=== PATIENT | female | born 1945 | race Caucasian/White ===

== ENCOUNTER 2019-04-09 15:07 | Outpatient (CLI) | payer MEDICARE, OTHER, SELFPAY ==
--- NOTE | ~2019-04-09 | MM_ITS ---
EXAMINATION: MM screening eloina BI w hector HISTORY: Screening mammogram TECHNIQUE: Craniocaudal and mediolateral oblique 3-D tomosynthesis images were obtained and synthetic 2-D images were generated. CAD analysis was submitted and interpreted. COMPARISON: Comparison to multiple prior studies sequentially, with oldest reviewed study dated 12/15. BREAST PARENCHYMAL COMPOSITION: There are scattered areas of fibroglandular density. FINDINGS: There is no evidence of suspicious mass, calcification, or architectural distortion to sugg est malignancy in either breast. There has been no suspicious interval change. IMPRESSION: 1. No mammographic evidence of malignancy. 2. Recommend routine screening mammography in one year. BI-RADS Category 1: Negative Reviewed, dictated and finalized at location A. 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
== END 2019-04-09 15:08 | disposition home or self-care (01) ==
PROVIDERS: PCP Family Medicine; Visit Provider Obstetrics & Gynecology Gynecology
DX: Z12.31 Encounter for screening mammogram for malignant neoplasm of breast (principal)
CPT/HCPCS: 77063; 77067

== ENCOUNTER 2019-08-12 10:57 | Outpatient (CLI) | payer MEDICARE, SELFPAY ==
[2019-08-12 13:11] LABS: Anion Gap 11.4 mmol/L (7-16); Blood Urea Nitrogen 8 mg/dL (7-18); Calcium 9.5 mg/dL (8.5-10.1); Carbon Dioxide 28 mmol/L (21-32); Chloride 97 mmol/L (98-108); Cholesterol 206 mg/dL (0-200); Estimated Glomerular Filt Rate > 60; Glucose 93 mg/dL (70-99); HDL Direct 70 mg/dL (40-60); LDL Cholesterol Calculated 122 mg/dL (<130); Osmolality Calculated 272 mOsm/kg (285-295); Potassium 4.4 mmol/L (3.5-5.1); Sodium 132 mmol/L (136-145); Thyroid Stimulating Hormone 2.13 uIU/mL (0.36-3.74); Triglycerides 71 mg/dL (0-150)
== END 2019-08-12 10:58 | disposition home or self-care (01) ==
PROVIDERS: PCP Family Medicine; Visit Provider Family Medicine
DX: R53.83 Other fatigue (principal); T17.308A Unspecified foreign body in larynx causing other injury, initial encounter; E87.1 Hypo-osmolality and hyponatremia; E78.5 Hyperlipidemia, unspecified
CPT/HCPCS: 36415; 80048; 80061; 84443

== ENCOUNTER 2019-09-02 09:42 | Outpatient (CLI) | payer MEDICARE, OTHER, SELFPAY ==
--- NOTE | ~2019-09-02 | MR_ITS ---
EXAMINATION: MR brain/brain stem wo/w con DATE: 09/02/2019 11:13 INDICATION: Syncope and collapse. TECHNIQUE: Magnetic resonance imaging (MRI) of the brain and brainstem was performed without and with 12 mL MultiHance intravenous contrast. Sequences included sagittal and axial T1-weighted FSE, axial diffusion-weighted FS EPI, axial T2*-weighted GRE, axial T2-weighted FLAIR Propeller, and axial T2-we ighted Propeller. Postcontrast sequences included axial and coronal T1-weighted FSE. Apparent diffusi on coefficient (ADC) maps were created. COMPARISON: None. FINDINGS: There is no intracranial hemorrhage, acute infarction, or abnormal intracranial mass lesion . The ventricles are normal in size. The paranasal sinuses are clear. The orbits are normal. The mast oid air cells are normal. IMPRESSION: 1. Normal brain. Reviewed, dictated and finalized at location A. IMPRESSION: 1. Normal brain.
== END 2019-09-02 09:43 | disposition home or self-care (01) ==
PROVIDERS: PCP Family Medicine; Visit Provider Family Medicine
DX: R55 Syncope and collapse (principal)
CPT/HCPCS: 70553; A9577

== ENCOUNTER 2019-10-02 14:14 | Outpatient (CLI) | payer MEDICARE, SELFPAY ==
[2019-10-05 06:41] LABS: Osmolality, Urine 196 mOsm/kg (50-1200)
== END 2019-10-02 14:15 | disposition home or self-care (01) ==
PROVIDERS: PCP Family Medicine; Visit Provider Family Medicine
DX: E87.1 Hypo-osmolality and hyponatremia (principal)
CPT/HCPCS: 83935

== ENCOUNTER 2019-11-08 10:55 | Emergency (ER) | payer MEDICARE, OTHER, SELFPAY ==
--- NOTE | ~2019-11-08 | US_ITS ---
EXAMINATION: US venous doppler [facility] EXAM DATE: 11/08/2019 12:56 INDICATION: Left leg pain and swelling. TECHNIQUE: Multiple grayscale, color flow and Doppler images of the left lower extremity deep venous system were obtained and reviewed. There is no prior study for comparison. FINDINGS: The left common femoral, femoral and profunda veins demonstrate normal color flow, respirat ory variation, augmentation and compressibility. Compressibility, color flow confirmed within the le ft popliteal, posterior tibial, peroneal, and greater saphenous veins. IMPRESSION: 1. No left lower extremity deep venous thrombosis. Reviewed, dictated and finalized at location B.
[2019-11-08 10:58] VITALS: BP 164/67; PULSE 78; RESP 19; TEMP 36.6; O2SAT 100
--- NOTE | 2019-11-08 12:07 | ED.LOWEXIN ---
HPI - Extremity Injury (Lower) General Chief Complaint: Extremity Injury, Lower <Trae Clemente PA-C - Last Filed: 11/08/19 21:58> Stated Complaint: possible blood clot <Trae Clemente PA-C - Last Filed: 11/08/19 21:58> Time Seen by Provider: 11/08/19 11:57 <Trae Clemente PA-C - Last Filed: 11/08/19 21:58> Source: patient <VIET Harding Last Filed: 11/08/19 21:58> Mode of arrival: ambulatory <VIET Harding Last Filed: 11/08/19 21:58> Limitations: no limitations <VIET Harding Last Filed: 11/08/19 21:58> History of Present Illness HPI Narrative: Patient presents for rule out DVT after calling her primary care provider and explaining to them that she had a swelling to her left ankle that they moved to her calf, then moved up closer to her knee. She denies any shortness of breath or chest pain. She denies she reports that the area was more swelling erythematous with a has now improved. Patient reports she has a lot of deep vein thrombosis to the knee. Patient is also on estrogen therapy. <VIET Harding Last Filed: 11/08/19 21:58> Related Data Home Medications: Home Medications Medication Instructions Recorded Confirmed estradiol 1 mg tablet 1 mg PO DAILY 12/18/18 08/18/19 phenazopyridine 95 mg tablet 95 mg PO TID PRN 12/18/18 08/18/19 calcium citrate 250 mg 1 tablet PO DAILY tablet 03/12/19 08/18/19 calcium-vitamin D3 200 unit tablet sertraline mg DAILY 11/08/19 <VIET Harding Last Filed: 11/08/19 21:58> Allergies/Adverse Reactions: Allergies Allergy/AdvReac Type Severity Reaction Status Date / Time meperidine Allergy Unknown Hives Verified 11/08/19 11:01 Sulfa (Sulfonamide Allergy Unknown Hives Verified 11/08/19 11:01 Antibiotics) <VIET Harding Last Filed: 11/08/19 21:58> Review of Systems Review of Systems: Narrative: CONSTITUTIONAL: Denies fever, chills, or sweats. EYES: Denies visual changes, redness, or discharge. ENT: Denies rhinorrhea, congestion, sore throat, or otalgia. CARDIOVASCULAR: Denies chest pain, palpitations, or edema. RESPIRATORY: Denies cough or dyspnea. GASTROINTESTINAL: Denies abdominal pain, nausea, vomiting, or diarrhea. GENITOURINARY: Denies dysuria or hematuria. SKIN: Reports swelling left lower leg denies rash or itching. MUSCULOSKELETAL: Denies back pain, myalgia, or joint pain NEUROLOGIC: Denies headache, numbness, dizziness, or weakness. PSYCHIATRIC: Denies anxiety or depression. <Trae Clemente PA-C - Last Filed: 11/08/19 21:58> [facility] Social History Social History: Social History Smoking status: Never smoker Second hand tobacco smoke exposure: Yes Alcohol intake: current Substance use: never Substance use type: does not use Gender identity (if verbalized by the patient): Female <Trae Clemente PA-C - Last Filed: 11/08/19 21:58> Exam Narrative: Exam Narrative: GENERAL: Well-appearing, well-nourished. HEAD: Normocephalic, atraumatic. EYES: PERRLA and EOMI. ENT: Nares clear, no rhinorrhea or epistaxis. Mucous membranes moist. Oropharynx without tonsillar hypertrophy exudate or other lesions. Bilateral TMs pearly alvarado nonbulging NECK: Supple. No adenopathy or masses. No vertebral tenderness or loss of ROM. CHEST: Clear to auscultation. No respiratory distress. No wheezes rales or rhonchi HEART: Regular rate and rhythm. Normal peripheral pulses. ABDOMEN: Soft, nontender, nondistended, normal active bowel sounds. No bruises noted. EXTREMITIES: No acute changes in ROM. No edema. No bony tenderness to the ankle. There are multiple varicosities noted along patient's leg but there is not appreciated swelling or tenderness. Calf is not tender to palpation. SKIN: Warm, dry, no rash. NEURO: No focal deficits. Alert and oriented x3. PSYCH: Normal mood and affect. <Trae Clemente PA
[2019-11-08 14:13] VITALS: BP 151/72; PULSE 57; RESP 16; O2SAT 98
== END 2019-11-08 14:16 | disposition home or self-care (01) ==
PROVIDERS: Emergency Provider Emergency Medicine; PCP Family Medicine
DX: I80.02 Phlebitis and thrombophlebitis of superficial vessels of left lower extremity (principal)
CPT/HCPCS: 93971; 99284

== ENCOUNTER 2020-01-06 14:06 | Outpatient (CLI) | payer MEDICARE, OTHER, SELFPAY ==
--- NOTE | ~2020-01-06 | XR_ITS ---
EXAMINATION: XR lumbar spine min 4V DATE: 01/06/2020 14:46 INDICATION: Radiculopathy with pain radiating down the left leg TECHNIQUE: Anteroposterior, lateral, and bilateral oblique views of the lumbar spine, and cone-down l ateral view of the lumbosacral junction were obtained. COMPARISON: None. FINDINGS: 4 mm anterolisthesis L4 on L5. Vertebral body heights are normal. Moderate disc height loss at L4-L5 and L5-S1. Mild disc height loss at L3-L4 and minimal disc height loss at L1-L2 and L2-L3. No pars in terarticularis defects. Lumbar facet osteoarthritis moderate to severe bilaterally at L4-L5 and L5-S1 and mild in the more cephalad lumbar spine. Sacrum and bilateral sacroiliac joints are unremarkable. Cholecystectomy clips in the right upper quadrant. Additional surgical clips in the epigastric regio n. IMPRESSION: 1. Moderate lower lumbar spondylosis including 4 mm anterolisthesis L4 on L5. Reviewed, dictated and finalized at location . 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
== END 2020-01-06 14:07 | disposition home or self-care (01) ==
LOC: CHSLAB 14:08
PROVIDERS: PCP Family Medicine; Visit Provider Physician Assistant
DX: M54.10 Radiculopathy, site unspecified (principal)
CPT/HCPCS: 72110

== ENCOUNTER → 2020-02-05 14:21 | Outpatient (CLI) | payer MEDICARE, OTHER, SELFPAY ==
--- NOTE | ~2020-02-05 | MR_ITS ---
. EXAMINATION: MR lumbar spine wo con DATE: 02/05/2020 15:06 INDICATION: Low back pain. Left leg pain. Lumbar radiculopathy. TECHNIQUE: Magnetic resonance imaging (MRI) of the lumbar spine was performed without intravenous con trast. Sequences included sagittal T2-weighted FSE, sagittal T2-weighted FS FSE, sagittal T1-weighted FSE, and axial T2-weighted FSE. COMPARISON: Lumbar spine radiographs 01/06/2020 FINDINGS: There is 3 mm anterolisthesis of L4 on L5. Vertebral body heights are normal. There is mild ly decreased disc height at L3-L4, moderately decreased disc height at L4-L5, and severely decreased disc height at L5-S1. 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 The distal spinal cord signal intensity is normal. The conus medullaris is at L1. The following disc levels are specifically discussed: L1-L2: The disc does not extend beyond the endplate margin. There is mild bilateral facet joint osteo arthritis. There is no neural foraminal stenosis. There is no central canal stenosis. L2-L3: The disc is bulging. There is moderate right and mild left facet joint osteoarthritis. There i s mild bilateral neural foraminal stenosis. There is no central canal stenosis. L3-L4: The disc is bulging and has an annular fissure. There is severe bilateral facet joint osteoart hritis with synovial cyst on the left. There is mild right and moderate left neural foraminal stenosi s. There is mild central canal stenosis with asymmetry stenosis of left lateral recess. L4-L5: The disc is bulging and has an annular fissure. There is severe bilateral facet joint osteoart hritis. There is mild bilateral neural foraminal stenosis. There is severe central canal stenosis. L5-S1: The disc is bulging and has an annular fissure. There is severe bilateral facet joint osteoart hritis. There is mild bilateral neural foraminal stenosis. There is mild central canal stenosis. IMPRESSION: 1. Severe lumbar spondylosis. Reviewed, dictated and finalized at location A. 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
== END ==
PROVIDERS: PCP Physician Assistant; Visit Provider Nurse Practitioner Family
DX: M47.26 Other spondylosis with radiculopathy, lumbar region (principal)
CPT/HCPCS: 72148

== ENCOUNTER 2020-10-13 14:05 | Outpatient (CLI) | payer MEDICARE, SELFPAY ==
[2020-10-13 14:22] LABS: Hemoglobin 12.3 g/dL (11.7-13.8); Mean Corpuscular HGB Conc 33.2 g/dL (32.0-36.0); Mean Corpuscular Hemoglobin 29.4 pg (27.0-31.0); Mean Corpuscular Volume 88.3 fL (78.0-102.0); Platelet Count Result 326 K/mm3 (150-420); Red Blood Count 4.19 M/mm3 (4.20-5.40); Red Cell Distribution Width 12.6 % (11.6-14.4); White Blood Count 7.8 K/mm3 (4.8-10.8)
[2020-10-13 14:27] LABS: Sodium Urine Random 31 mmol/L (20-110)
[2020-10-13 14:59] LABS: Alanine Aminotransferase 23 U/L (14-59); Albumin Level 3.6 g/dL (3.4-5.0); Alkaline Phosphatase 96 U/L (46-116); Anion Gap 5 mmol/L (8-16); Aspartate Amino Transferase 12 U/L (15-37); Bilirubin,Total 0.2 mg/dL (0.00-1.00); Blood Urea Nitrogen 12 mg/dL (7-18); Calcium 9.4 mg/dL (8.5-10.1); Carbon Dioxide 27 mmol/L (21-32); Chloride 101 mmol/L (98-108); Cholesterol 199 mg/dL (0-200); Estimated Glomerular Filt Rate > 60; Glucose 108 mg/dL (70-99); HDL Direct 65 mg/dL (40-60); LDL Cholesterol Calculated 109 mg/dL (<130); Osmolality Calculated 276 mOsm/kg (285-295); Potassium 4.2 mmol/L (3.5-5.1); Sodium 133 mmol/L (136-145); Total Protein 6.7 g/dL (6.4-8.2); Triglycerides 124 mg/dL (0-150)
[2020-10-17 05:40] LABS: Osmolality, Urine 319 mOsm/kg (50-1200)
[2020-10-17 06:05] LABS: Vitamin D 25 Hydroxy 14 ng/mL (30-100)
== END 2020-10-13 14:06 | disposition home or self-care (01) ==
LOC: CHSLAB 14:08
PROVIDERS: PCP Family Medicine; Visit Provider Family Medicine
DX: E87.1 Hypo-osmolality and hyponatremia (principal); E11.9 Type 2 diabetes mellitus without complications; E55.9 Vitamin D deficiency, unspecified; E03.9 Hypothyroidism, unspecified; E78.2 Mixed hyperlipidemia; I10 Essential (primary) hypertension
CPT/HCPCS: 36415; 80053; 80061; 82306; 83036; 83930; 83935; 84300; 84443; 85027

== ENCOUNTER 2020-12-23 14:22 | Outpatient (CLI) | payer MEDICARE, OTHER, SELFPAY ==
--- NOTE | ~2020-12-23 | XR_ITS ---
EXAMINATION: XR ankle LT min 3V DATE: 12/23/2020 14:51 INDICATION: Left ankle pain TECHNIQUE: Anteroposterior, lateral, mortise, and additional oblique view of the ankle were obtained. COMPARISON: None. FINDINGS: There is no fracture, dislocation, or subluxation. A plantar calcaneal enthesophyte is note d. There is mild soft tissue swelling of ankle. IMPRESSION: 1. Mild soft tissue swelling without acute osseous abnormality. Reviewed, dictated and finalized at location B. 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
--- NOTE | ~2020-12-23 | US_ITS ---
EXAMINATION: US venous doppler [facility] DATE: 12/23/2020 14:56 INDICATION: Left lower limb pain TECHNIQUE: Hong scale images without and with compression and Doppler images of the left lower extrem ity veins were obtained. COMPARISON: 11/08/2019 FINDINGS: The left common femoral vein, profunda femoral vein, femoral vein, popliteal vein, peroneal trunk, posterior tibial veins, and greater saphenous vein are patent. IMPRESSION: 1. Patent left lower extremity veins. No evidence of deep venous thrombosis. Reviewed, dictated and finalized at location B. D DRIVER
--- NOTE | ~2020-12-23 | XR_ITS ---
EXAMINATION: XR foot LT min 3V DATE: 12/23/2020 14:51 INDICATION: Left lower limb pain TECHNIQUE: Dorsoplantar, lateral, and 2 oblique views of the left foot were obtained. COMPARISON: None. FINDINGS: There is no fracture, dislocation, or subluxation. Mild hallux valgus is noted. There is mi ld osteoarthritis at the first metatarsophalangeal joint and in multiple interphalangeal joints. Ther e is mild soft tissue swelling overlying the distal metatarsals. IMPRESSION: 1. Mild soft tissue swelling without acute osseous abnormality identified. Reviewed, dictated and finalized at location B. 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
== END 2020-12-23 14:23 | disposition home or self-care (01) ==
PROVIDERS: PCP Family Medicine; Visit Provider Family Medicine
DX: M25.572 Pain in left ankle and joints of left foot (principal); R60.9 Edema, unspecified
CPT/HCPCS: 73610; 73630; 93971

== ENCOUNTER 2020-12-25 14:18 | Outpatient (CLI) | payer MEDICARE, OTHER, SELFPAY ==
[2020-12-25 15:24] LABS: Uric Acid 4.3 mg/dL (2.6-6.0)
== END 2020-12-25 14:19 | disposition home or self-care (01) ==
LOC: CHSLAB 14:20
PROVIDERS: PCP Family Medicine; Visit Provider Physician Assistant
DX: M25.50 Pain in unspecified joint (principal)
CPT/HCPCS: 36415; 84550

== ENCOUNTER 2021-03-05 14:32 | Outpatient (CLI) | payer MEDICARE, OTHER, SELFPAY ==
--- NOTE | ~2021-03-05 | MM_ITS ---
EXAMINATION: MM screening eloina BI w hector HISTORY: Screening TECHNIQUE: Craniocaudal and mediolateral oblique 3-D tomosynthesis images were obtained and synthetic 2-D images were generated. CAD analysis was submitted and interpreted. COMPARISON: Comparison to multiple prior studies sequentially, with oldest reviewed study dated 12/15. BREAST PARENCHYMAL COMPOSITION: There are scattered areas of fibroglandular density. FINDINGS: There is no evidence of suspicious mass, calcification, or architectural distortion to sugg est malignancy in either breast. There has been no suspicious interval change. IMPRESSION: 1. No mammographic evidence of malignancy. 2. Recommend routine screening mammography in one year. BI-RADS Category 1: Negative Reviewed, dictated and finalized at location A. HENHAND
== END 2021-03-05 14:33 | disposition home or self-care (01) ==
PROVIDERS: PCP Family Medicine; Visit Provider Family Medicine
DX: Z12.31 Encounter for screening mammogram for malignant neoplasm of breast (principal)
CPT/HCPCS: 77063; 77067

== ENCOUNTER 2021-03-15 14:15 | Outpatient (CLI) | payer MEDICARE, SELFPAY ==
[2021-03-15 14:37] LABS: Hematocrit 42.6 % (35.0-42.0); Hemoglobin 13.9 g/dL (11.7-13.8); Mean Corpuscular HGB Conc 32.6 g/dL (32.0-36.0); Mean Corpuscular Hemoglobin 30.8 pg (27.0-31.0); Mean Corpuscular Volume 94.5 fL (78.0-102.0); Mean Platelet Volume 9.7 fl (9.2-11.8); Platelet Count Result 359 K/mm3 (150-420); Red Blood Count 4.51 M/mm3 (4.20-5.40); Red Cell Distribution Width 12.2 % (11.6-14.4); White Blood Count 8.8 K/mm3 (4.8-10.8)
[2021-03-15 14:53] LABS: Hemoglobin A1C 5.9 % (<5.7)
[2021-03-15 15:20] LABS: Alanine Aminotransferase 19 U/L (14-59); Albumin Level 3.8 g/dL (3.4-5.0); Alkaline Phosphatase 78 U/L (46-116); Anion Gap 9 mmol/L (8-16); Aspartate Amino Transferase 13 U/L (15-37); Bilirubin,Total 0.3 mg/dL (0.00-1.00); Blood Urea Nitrogen 14 mg/dL (7-18); Calcium 9.2 mg/dL (8.5-10.1); Carbon Dioxide 27 mmol/L (21-32); Chloride 101 mmol/L (98-108); Creatine Kinase 42 U/L (26-192); Estimated Glomerular Filt Rate 57; Glucose 160 mg/dL (70-99); Osmolality Calculated 287 mOsm/kg (285-295); Potassium 3.4 mmol/L (3.5-5.1); Sodium 137 mmol/L (136-145); Total Protein 6.9 g/dL (6.4-8.2); Vitamin B12 252 pg/mL (193-986)
[2021-03-15 15:52] LABS: Erythrocyte Sedimentation Rate 12 mm/hr (0-20)
[2021-03-15 16:34] LABS: Thyroid Stimulating Hormone Reflex 3.56 u/IU/mL (0.36-3.74)
== END 2021-03-15 14:16 | disposition home or self-care (01) ==
LOC: CHSLAB 14:18
PROVIDERS: PCP Family Medicine; Visit Provider Family Medicine
DX: R53.83 Other fatigue (principal); R20.2 Paresthesia of skin; E11.9 Type 2 diabetes mellitus without complications; M79.10 Myalgia, unspecified site
CPT/HCPCS: 36415; 80053; 82550; 82607; 83036; 84443; 85027; 85652

== ENCOUNTER 2021-04-22 14:12 | Outpatient (CLI) | payer MEDICARE, SELFPAY ==
--- NOTE | ~2021-04-22 | DEXA_ITS ---
Bone Density Report Name: ANABELLA MEDINA Age: 76 Sex: Female Ethnicity: White Date of : 1945 Indication: postmenopausal; screening for osteoporosis; height loss; prior fracture; hysterectomy; rheumatoid arthritis; Referring Provider: UNKNOWN, UNKNOWN Study: Bone densitometry was performed. Exam Date: April 22, 2021 Accession number: [id number] Bone Density: Region BMD T-score Z-score Classification Femoral Neck (Left) 0.747 -0.9 1.2 Normal Total Hip (Left) 0.865 -0.6 1.2 Normal Femoral Neck (Right) 0.685 -1.5 0.6 Osteopenia Total Hip (Right) 0.828 -0.9 0.9 Normal Femoral Neck Mean 0.716 -1.2 0.9 Osteopenia Total Hip Mean 0.846 -0.8 1.0 Normal World Health Organization criteria for BMD impression classify patients as: Normal (T-score at or above -1.0), Osteopenia (T-score between -1.0 and -2.5), or Osteoporosis (T-score at or below -2.5). 10-year Fracture Risk: FRAX not reported because: Prior hip or vertebral fracture Clinical Information Provided by Patient: Have had a previous hip or vertebral fracture Has had a low trauma fracture Has rheumatoid arthritis Has used the following medications: HRT (i.e. estrogen/hormone therapy), Vitamin D, Calcium Has the following medical conditions: Hysterectomy Patient maximum height was 62 Menopause Age: 43 No regular weight bearing exercise Does not regularly consume dairy products Drinks caffeinated beverages Onset of menses at age 13 Number of children 2 Impression: The patient has low bone mass, based on the Right Femoral Neck T-score. The patient has risk factors, including: previous fracture. Discussion: INCREASED RISK OF FRACTURE DUE TO HISTORY OF FRACTURE. The patient's previous fracture puts the patient at high risk of a future fracture. In untreated patients, the risk of osteoporotic fracture increases approximately two-fold for each 1.0 SD decrease in T-score. Low bone density is not the only risk factor for fracture; also consider factors such as patient's age, frailty or poor health, risk of falling, risk of injury, previous osteoporotic fracture, family history of osteoporosis, cigarette smoking, low body weight, etc. Not everyone with a low trauma fracture has osteoporosis; osteomalacia and other metabolic bone disorders should also be considered. Patients who have osteoporosis should be evaluated for specific diseases and conditions (secondary causes) that may cause or contribute to bone loss and fracture risk. National Osteoporosis Foundation (NOF) recommends pharmacologic intervention for patients with a prior hip or vertebral fracture regardless of BMD T-score. The patient should follow a healthful lifestyle (good nutrition with adequate calcium and vitamin D, and appropriate weight-bearing exercise). Follow-Up: Consider a repe
== END 2021-04-22 14:13 | disposition home or self-care (01) ==
PROVIDERS: PCP Family Medicine; Visit Provider Nurse Practitioner
DX: Z78.0 Asymptomatic menopausal state (principal)
CPT/HCPCS: 77080

== ENCOUNTER 2021-08-18 12:10 | Outpatient (CLI) | payer MEDICARE, SELFPAY ==
[2021-08-18 12:26] LABS: Hematocrit 38.4 % (35.0-42.0); Hemoglobin 12.8 g/dL (11.7-13.8); Mean Corpuscular HGB Conc 33.3 g/dL (32.0-36.0); Mean Corpuscular Hemoglobin 31.1 pg (27.0-31.0); Mean Corpuscular Volume 93.4 fL (78.0-102.0); Mean Platelet Volume 9.1 fl (9.2-11.8); Platelet Count Result 284 K/mm3 (150-420); Red Blood Count 4.11 M/mm3 (4.20-5.40); Red Cell Distribution Width 12.3 % (11.6-14.4); White Blood Count 6.7 K/mm3 (4.8-10.8)
[2021-08-18 12:39] LABS: Hemoglobin A1C 5.6 % (<5.7)
[2021-08-18 13:06] LABS: Alanine Aminotransferase 12 U/L (14-59); Albumin Level 3.5 g/dL (3.4-5.0); Alkaline Phosphatase 88 U/L (46-116); Anion Gap 4 mmol/L (8-16); Aspartate Amino Transferase 13 U/L (15-37); Bilirubin,Total 0.3 mg/dL (0.00-1.00); Blood Urea Nitrogen 10 mg/dL (7-18); Calcium 9.2 mg/dL (8.5-10.1); Carbon Dioxide 30 mmol/L (21-32); Chloride 104 mmol/L (98-108); Cholesterol 209 mg/dL (0-200); Estimated Glomerular Filt Rate > 60; Glucose 109 mg/dL (70-99); HDL Direct 70 mg/dL (40-60); LDL Cholesterol Calculated 121 mg/dL (<130); Magnesium 2.1 mg/dL (1.8-2.4); Osmolality Calculated 286 mOsm/kg (285-295); Potassium 4.1 mmol/L (3.5-5.1); Sodium 138 mmol/L (136-145); Total Protein 6.5 g/dL (6.4-8.2); Triglycerides 91 mg/dL (0-150); Vitamin B12 708 pg/mL (193-986)
[2021-08-21 19:26] LABS: Vitamin D 25 Hydroxy 28 ng/mL (30-100)
== END 2021-08-18 12:11 | disposition home or self-care (01) ==
LOC: CHSLAB 12:13
PROVIDERS: PCP Family Medicine; Visit Provider Family Medicine
DX: E78.2 Mixed hyperlipidemia (principal); I10 Essential (primary) hypertension; E11.9 Type 2 diabetes mellitus without complications; E53.8 Deficiency of other specified B group vitamins; R53.83 Other fatigue; D64.9 Anemia, unspecified; E55.9 Vitamin D deficiency, unspecified
CPT/HCPCS: 36415; 80053; 80061; 82306; 82607; 83036; 83735; 85027

== ENCOUNTER 2022-01-19 14:47 | Outpatient (CLI) | payer MEDICARE, SELFPAY ==
[2022-01-19 15:35] LABS: Influenza A QL RT-PCR Negative (Negative); Influenza B QL RT-PCR Negative (Negative); RSV RNA, RT-PCR Negative (Negative); SARS-CoV-2 RNA PCR Positive
== END 2022-01-19 14:48 | disposition home or self-care (01) ==
LOC: ANHLAB 14:47
PROVIDERS: PCP Family Medicine; Visit Provider Physician Assistant
DX: U07.1 COVID-19 (principal)
CPT/HCPCS: 87637

== ENCOUNTER 2022-02-17 14:46 | Outpatient (CLI) | payer MEDICARE, SELFPAY ==
[2022-02-17 15:21] LABS: Alanine Aminotransferase 19 U/L (14-59); Albumin Level 3.6 g/dL (3.4-5.0); Alkaline Phosphatase 84 U/L (46-116); Anion Gap 6 mmol/L (8-16); Aspartate Amino Transferase 16 U/L (15-37); Bilirubin,Total 0.2 mg/dL (0.00-1.00); Blood Urea Nitrogen 7 mg/dL (7-18); Carbon Dioxide 30 mmol/L (21-32); Chloride 100 mmol/L (98-108); Cholesterol 190 mg/dL (0-200); Estimated Glomerular Filt Rate > 60; Glucose 88 mg/dL (70-99); HDL Direct 65 mg/dL (40-60); Hemoglobin A1C 5.6 % (<5.7); LDL Cholesterol Calculated 97 mg/dL (<130); Osmolality Calculated 279 mOsm/kg (285-295); Potassium 3.8 mmol/L (3.5-5.1); Sodium 136 mmol/L (136-145); Total Protein 6.2 g/dL (6.4-8.2); Triglycerides 139 mg/dL (0-150)
[2022-02-22 20:38] LABS: Vitamin D 25 Hydroxy 51 ng/mL (30-100)
== END 2022-02-17 14:47 | disposition home or self-care (01) ==
LOC: CHSLAB 14:48
PROVIDERS: PCP Family Medicine; Visit Provider Family Medicine
DX: E78.2 Mixed hyperlipidemia (principal); E55.9 Vitamin D deficiency, unspecified; R53.83 Other fatigue; I10 Essential (primary) hypertension; R73.03 Prediabetes
CPT/HCPCS: 36415; 80053; 80061; 82306; 83036; 84443

== ENCOUNTER 2022-11-03 08:23 | Outpatient (CLI) | payer MEDICARE, SELFPAY ==
--- NOTE | ~2022-11-03 | MR_ITS ---
MRI of the thoracic spine Clinical History: Radiculopathy Technique: Axial T2-weighted and gradient images, and sagittal T1-weighted, T2-weighted, and STIR nahid ges were acquired. Findings: There is diffuse abnormal hypointense T1 marrow signal in the T5 vertebral body, probably e xtending into the pedicles, with minimal hyperintense signal on STIR images. No other suspicious bone marrow signal abnormality seen in the thoracic spine. There is heterogeneous marrow signal at the in ferior aspect of the L2 vertebral body, though with a nonsuspicious appearance overall. Transpedicula r screws are partially imaged at the L3 level. No fracture or subluxation seen in the thoracic spine. There is mild disc bulge at T8-T9, with minimal flattening the ventral cord. No other significant dis c bulge or herniation seen at any of the thoracic level. No other areas of spinal canal stenosis or c ord compression. No epidural mass or collection seen otherwise. No abnormal signal seen in the spinal cord. Paraverteb ral soft tissues are unremarkable. Impression: Diffuse abnormal signal of the T5 vertebral body, probably involving the pedicles, as detailed above. Findings are suspicious for neoplastic, or possibly lymphomatous, disease. Malignancy/metastatic wor kup advised. Heterogeneous signal in the L2 vertebral body, with overall benign appearance, likely reactive change related to degenerative disc disease. Focal disc bulge at T8-T9, with minimal flattening of the ventral cord at this level. Findings were relayed to the child support officer at Dr. Shetty's office at the time of this reading. Reviewed, dictated and finalized at [facility]. Impression: Diffuse abnormal signal of the T5 vertebral body, probably involving the pedicl es, as detailed above. Findings are suspicious for neoplastic, or possibly lymp homatous, disease. Malignancy/metastatic workup advised. Heterogeneous signal in the L2 vertebral body, with overall benign appearance, likely reactive change related to degenerative disc disease. Focal disc bulge at T8-T9, with minimal flattening of the ventral cord at this level. Findings were relayed to the child support officer at Dr. Shetty's office at the time of this reading.
== END 2022-11-03 08:24 | disposition home or self-care (01) ==
LOC: CHSIMG 08:25
PROVIDERS: PCP Family Medicine; Visit Provider Pain Medicine Pain Medicine
DX: M54.16 Radiculopathy, lumbar region (principal); M51.84 Other intervertebral disc disorders, thoracic region; R93.7 Abnormal findings on diagnostic imaging of other parts of musculoskeletal system
CPT/HCPCS: 72146

== ENCOUNTER 2022-11-14 14:03 | Outpatient (CLI) | payer MEDICARE, SELFPAY ==
[2022-11-14 14:17] LABS: Appearance Urine Clear (Clear); Bilirubin Urine Negative (Negative); Blood Urine Negative (Negative); Glucose Urine UA Negative (Negative); Ketones Urine Trace (Negative); Leukocyte Esterase Ur Negative LEU/UL (Negative); Nitrate Urine Negative (Negative); Protein Urine Negative (Negative); Specific Grav Ur 1.025 (1.010-1.020); Urobilinogen Urine 0.2 mg/dL (0.2-1.0)
[2022-11-14 14:19] LABS: Add Urine Microscopic? YES; Color Urine Amber (Yellow); RBC Urine None seen /hpf (0-2); Squamous Epithelial Cell Urine Few /hpf (Few); WBC Urine None seen /hpf (0-3)
[2022-11-14 14:20] LABS: Bacteria Urine Trace /hpf; Mucus Urine Few /lpf
== END 2022-11-14 14:04 | disposition home or self-care (01) ==
LOC: CHSLAB 14:05
PROVIDERS: PCP Family Medicine; Visit Provider Family Medicine
DX: R93.89 Abnormal findings on diagnostic imaging of other specified body structures (principal); R80.9 Proteinuria, unspecified
CPT/HCPCS: 81001

== ENCOUNTER 2022-11-17 08:06 | Outpatient (CLI) | payer MEDICARE, SELFPAY ==
--- NOTE | ~2022-11-17 | NM_ITS ---
EXAMINATION: NM bone scan whole body DATE: 11/17/2022 11:42 INDICATION: T5 mass. Abnormal findings on diagnostic imaging. TECHNIQUE: 25.1 mCi Tc-99m HDP was administered intravenously. Delayed whole-body scintigrams were o btained. COMPARISON: Thoracic spine MRI 11/03/2022, chest CT 01/03/08 FINDINGS: There is disc-centered and facet joint-centered increased activity in thoracic and lumbar s pine correlating with spondylosis by MRI. There is joint centered increased activity at the sternocla vicular joints, acromioclavicular joints, hands, and right knee likely osteoarthritis IMPRESSION: 1. No abnormal bone scan correlate for the bone marrow signal abnormality in T5 by MRI, likely benign . Reviewed, dictated and finalized at location E. IMPRESSION: 1. No abnormal bone scan correlate for the bone marrow signal abnormality in T5 by MRI, likely benign.
== END 2022-11-17 08:07 | disposition home or self-care (01) ==
PROVIDERS: PCP Family Medicine; Visit Provider Family Medicine
DX: R93.7 Abnormal findings on diagnostic imaging of other parts of musculoskeletal system (principal)
CPT/HCPCS: 78306; A9503

== ENCOUNTER 2022-12-05 16:36 | Outpatient (CLI) | payer MEDICARE, SELFPAY ==
[2022-12-05 16:49] LABS: Basophils Absolute Auto 0.02 K/mm3 (0.00-0.10); Basophils Percent Auto 0.3 % (0.0-1.0); Eosinophils Absolute Auto 0.13 K/mm3 (0.02-0.50); Eosinophils Percent Auto 1.8 % (1.0-6.0); Hematocrit 38.1 % (35.0-42.0); Hemoglobin 12.7 g/dL (11.7-13.8); Immature Granulocyte Absolute 0.01 K/mm3 (0.00-0.00); Immature Granulocyte Percent A 0.1 % (0.0-0.0); Lymphocytes Absolute Auto 2.74 K/mm3 (1.10-4.50); Lymphocytes Percent Auto 38.6 % (18.0-42.0); Mean Corpuscular HGB Conc 33.3 g/dL (32.0-36.0); Mean Corpuscular Volume 92.9 fL (78.0-102.0); Mean Platelet Volume 9.5 fl (9.2-11.8); Monocytes Absolute Auto 0.38 K/mm3 (0.10-0.90); Monocytes Percent Auto 5.4 % (2.0-11.0); Neutrophils Absolute Auto 3.8 K/mm3 (1.7-7.2); Neutrophils Percent Auto 53.8 % (50.0-70.0); Platelet Count Result 295 K/mm3 (150-420); Red Cell Distribution Width 12.3 % (11.6-14.4); White Blood Count 7.1 K/mm3 (4.8-10.8)
[2022-12-05 17:18] LABS: Alanine Aminotransferase 17 U/L (14-59); Albumin Level 3.4 g/dL (3.4-5.0); Alkaline Phosphatase 83 U/L (46-116); Anion Gap 12 mmol/L (8-16); Aspartate Amino Transferase 10 U/L (15-37); Bilirubin,Total 0.3 mg/dL (0.00-1.00); Blood Urea Nitrogen 7 mg/dL (7-18); Calcium 9.8 mg/dL (8.5-10.1); Carbon Dioxide 25 mmol/L (21-32); Chloride 103 mmol/L (98-108); Cholesterol 152 mg/dL (0-200); Estimated Glomerular Filt Rate > 60; Glucose 203 mg/dL (70-99); HDL Direct 59 mg/dL (40-60); LDL Cholesterol Calculated 75 mg/dL (<130); Osmolality Calculated 294 mOsm/kg (285-295); Potassium 3.5 mmol/L (3.5-5.1); Sodium 140 mmol/L (136-145); Triglycerides 89 mg/dL (0-150)
[2022-12-05 17:29] LABS: Hemoglobin A1C 5.9 % (<5.7)
[2022-12-05 18:05] LABS: Thyroid Stimulating Hormone Reflex 1.45 u/IU/mL (0.36-3.74)
== END 2022-12-05 16:37 | disposition home or self-care (01) ==
LOC: CHSLAB 16:38
PROVIDERS: PCP Family Medicine; Visit Provider Family Medicine
DX: R73.03 Prediabetes (principal); I10 Essential (primary) hypertension; E87.1 Hypo-osmolality and hyponatremia; R10.9 Unspecified abdominal pain; E78.2 Mixed hyperlipidemia; R53.83 Other fatigue
CPT/HCPCS: 36415; 80053; 80061; 83036; 84443; 85025

== ENCOUNTER 2022-12-06 10:48 | Outpatient (CLI) | payer MEDICARE, SELFPAY ==
--- NOTE | ~2022-12-06 | MR_ITS ---
MRI of the cervical spine Clinical History: Radiculopathy Technique: Axial T2-weighted and gradient images, and sagittal T1-weighted, T2-weighted, and STIR nahid ges were acquired. Findings: There is no fracture or subluxation of the cervical spine. Vertebral bodies maintain normal height and alignment. No bone marrow signal abnormality seen. At C2-C3, there is no disc bulge or herniation. No spinal canal stenosis, cord compression, or neural foraminal narrowing. At C3-C4, there is no significant disc bulge or herniation. No spinal canal stenosis, cord compressio n, or neural foraminal narrowing. At C4-C5, there is no significant disc bulge or herniation. No spinal canal stenosis, cord compressio n, or definite neural foraminal narrowing. There is mild bilateral facet hypertrophy, right worse vincenzo n left. At C5-C6, there is bilateral neural foraminal narrowing, predominantly related to bilateral facet art hropathy/hypertrophy. There is minimal disc bulge. No valery spinal canal stenosis or cord compression . At C6-C7, there is bilateral facet arthropathy/hypertrophy with probable bilateral neural foraminal n arrowing, left worse than right. No significant disc bulge or herniation. No central canal stenosis o r cord compression. No abnormal signal seen in the spinal cord. Paravertebral soft tissues are unremarkable. Impression: Mild to moderate degenerative spondylosis, particularly at the lower lumbar spine, as detailed above. Reviewed, dictated and finalized at [facility]. Impression: Mild to moderate degenerative spondylosis, particularly at the lower lumbar spi ne, as detailed above.
== END 2022-12-06 10:49 | disposition home or self-care (01) ==
LOC: ANHIMG 10:51
PROVIDERS: PCP Family Medicine; Visit Provider Family Medicine
DX: M43.02 Spondylolysis, cervical region (principal)
CPT/HCPCS: 72141

== ENCOUNTER 2023-02-24 13:03 | Outpatient (CLI) | payer MEDICARE, SELFPAY ==
[2023-02-24 13:23] LABS: Basophils Absolute Auto 0.04 K/mm3 (0.00-0.10); Basophils Percent Auto 0.5 % (0.0-1.0); Eosinophils Percent Auto 1.2 % (1.0-6.0); Hematocrit 37.2 % (35.0-42.0); Hemoglobin 12.2 g/dL (11.7-13.8); Immature Granulocyte Absolute 0.03 K/mm3 (0.00-0.00); Immature Granulocyte Percent A 0.4 % (0.0-0.0); Lymphocytes Absolute Auto 2.99 K/mm3 (1.10-4.50); Lymphocytes Percent Auto 36.5 % (18.0-42.0); Mean Corpuscular HGB Conc 32.8 g/dL (32.0-36.0); Mean Corpuscular Volume 94.4 fL (78.0-102.0); Mean Platelet Volume 9.4 fl (9.2-11.8); Monocytes Absolute Auto 0.45 K/mm3 (0.10-0.90); Monocytes Percent Auto 5.5 % (2.0-11.0); Neutrophils Absolute Auto 4.6 K/mm3 (1.7-7.2); Neutrophils Percent Auto 55.9 % (50.0-70.0); Platelet Count Result 346 K/mm3 (150-420); Red Blood Count 3.94 M/mm3 (4.20-5.40); Red Cell Distribution Width 12.7 % (11.6-14.4); White Blood Count 8.2 K/mm3 (4.8-10.8)
[2023-02-24 13:25] LABS: Appearance Urine Clear (Clear); Bilirubin Urine Negative (Negative); Blood Urine Negative (Negative); Color Urine Light Yellow (Yellow); Glucose Urine UA Negative (Negative); Ketones Urine Negative (Negative); Leukocyte Esterase Ur Trace LEU/UL (Negative); Nitrate Urine Negative (Negative); Protein Urine Negative (Negative); Specific Grav Ur 1.025 (1.010-1.020); Urobilinogen Urine 0.2 mg/dL (0.2-1.0)
[2023-02-24 13:29] LABS: Add Urine Microscopic? YES; Bacteria Urine Trace /hpf; Mucus Urine Few /lpf; RBC Urine None seen /hpf (0-2); Squamous Epithelial Cell Urine Few /hpf (Few); WBC Urine 0-3 /hpf (0-3)
[2023-02-24 13:40] LABS: INR 0.9; Partial Thromboplastin Time 23.9 SEC (23.90-30.70); Prothrombin Time 10.2 Seconds (9.50-12.10)
[2023-02-24 14:06] LABS: Anion Gap 8 mmol/L (8-16); Blood Urea Nitrogen 10 mg/dL (7-18); Calcium 8.9 mg/dL (8.5-10.1); Carbon Dioxide 28 mmol/L (21-32); Chloride 104 mmol/L (98-108); Estimated Glomerular Filt Rate > 60; Glucose 120 mg/dL (70-99); Osmolality Calculated 290 mOsm/kg (285-295); Potassium 3.6 mmol/L (3.5-5.1); Sodium 140 mmol/L (136-145)
== END 2023-02-24 13:04 | disposition home or self-care (01) ==
LOC: CHSLAB 13:07
PROVIDERS: PCP Family Medicine; Visit Provider Neurological Surgery
DX: Z01.818 Encounter for other preprocedural examination (principal)
CPT/HCPCS: 36415; 80048; 81001; 85025; 85610; 85730

== ENCOUNTER 2023-07-27 16:01 | Outpatient (CLI) | payer MEDICARE, SELFPAY ==
--- NOTE | ~2023-07-27 | XR_ITS ---
XR abdomen/kub 1V Ordering provider: ERIK Ojeda History: . DISTENTION, GAS/BLOATING X1 YR, HIATAL HERNIA REPAIR . Comparison: None. FINDINGS: BOWEL: Nonobstructive bowel gas pattern. ORGANOMEGALY: None. SIGNIFICANT PATHOLOGIC CALCIFICATIONS: None. OTHER: No free air is seen under the diaphragm. Postoperative changes in the lower spine. Spinal Stimulator in the left side of the abdomen. Pubic sy mphysitis. IMPRESSION: NO ACUTE ABDOMINAL FINDINGS. Reviewed, dictated and finalized at location A.
== END 2023-07-27 16:02 | disposition home or self-care (01) ==
LOC: ANHIMG 16:01
PROVIDERS: PCP Family Medicine; Visit Provider Nurse Practitioner Family
DX: R14.0 Abdominal distension (gaseous) (principal)
CPT/HCPCS: 74018

== ENCOUNTER 2023-08-16 07:00 | Outpatient (NON) | payer MEDICARE, SELFPAY | END 2023-08-16 07:01 | disposition home or self-care (01) | LOC: ANHLAB 08-18 09:07 | PROVIDERS: PCP Family Medicine; Visit Provider Internal Medicine Gastroenterology | DX: Z86.010 Personal history of colon polyps (principal) | CPT/HCPCS: 88305 ==

== ENCOUNTER 2023-08-16 09:53 | Day surgery (SDC) | payer MEDICARE, SELFPAY ==
[2023-08-01 08:15] VITALS: BMI 24.7
[2023-08-16 10:14] VITALS: BP 146/87; PULSE 69; RESP 15; TEMP 37; O2SAT 100
--- NOTE | 2023-08-16 10:22 | WPDHPUPDATE1 ---
History and Physical Update Update Date/Time: 08/16/23 10:22 History and Physical has been reviewed, including an updated exam of the patient. There are NO changes in the patient's condition. Risks, benefits, and alternatives have been discussed and questions answered. Patient agrees to proceed with procedure.
[2023-08-16] MEDS: LACTATED RINGERS 1,000 ML 150 ML IV CONT (10:27)
--- NOTE | 2023-08-16 10:34 | WPDANESEPPF ---
Anes - Initial Pre Proc Eval Procedure: Operation Date: 08/16/23 11:30 Proposed Procedures p Esophagogastroduodenoscopy - Ovi Rodriguez MD s Diagnostic Colonoscopy - Ovi Rodriguez MD Date/Time: 08/16/23 10:34 Surgeon: Ovi Rodriguez MD Pre Op Diagnosis: ABD Distension, ABD Pain, HX Colon Polyps Patient Data Age: 78 Gender: F Height: 1.57 m Weight: 59.3 kg Last Vital Signs Temp 37.0 C 08/16/23 10:14 Pulse 69 08/16/23 10:14 Resp 15 08/16/23 10:14 BP 146/87 H 08/16/23 10:14 Pulse Ox 100 08/16/23 10:14 O2 Del Method Room Air 08/16/23 10:14 Allergies Allergy/AdvReac Type Severity Reaction Status Date / Time meperidine Allergy Unknown Hives Verified 08/09/23 09:29 Sulfa (Sulfonamide Allergy Unknown Hives Verified 08/09/23 09:29 Antibiotics) Home Medications Medication Instructions Recorded Confirmed Type calcium citrate 250 mg 1 tablet PO DAILY 03/12/19 08/16/23 History calcium-vitamin D3 5 mcg (200 unit) tablet estradiol 0.5 mg tablet 0.5 mg PO DAILY #30 tabs 09/30/20 08/16/23 Rx magnesium 200 mg tablet 200 mg PO DAILY 12/21/20 08/16/23 History psyllium husk (aspartame) 3.4 gram 1 packet PO DAILY 05/24/22 08/16/23 History oral powder packet (Metamucil Fiber Singles) omeprazole 40 mg capsule,delayed 40 mg PO BID #180 caps 08/31/22 08/16/23 Rx release ergocalciferol (vitamin D2) 1,250 1,250 mcg PO WEEKLY #12 caps 01/31/23 08/16/23 Rx mcg (50,000 unit) capsule fluticasone propionate 50 2 spray intranasal DAILY #15.8 mL 05/01/23 08/16/23 Rx mcg/actuation nasal spray,suspension (Allergy Relief (fluticasone)) lisinopril 10 mg tablet 10 mg PO DAILY #90 tabs 05/03/23 08/16/23 Rx lisinopril 5 mg tablet 5 mg PO DAILY #90 tabs 05/03/23 08/16/23 Rx gabapentin 300 mg capsule See Rx Instructions PO .COMPLEX 05/31/23 08/16/23 Rx #150 caps duloxetine 60 mg capsule,delayed 60 mg PO DAILY #90 caps 08/11/23 08/16/23 Rx release hydrocodone 5 mg-acetaminophen 325 1 tablet PO Q4H PRN pain #42 tabs 08/11/23 08/16/23 Rx mg tablet trazodone 50 mg tablet 100 mg PO QHS PRN insomnia #180 08/14/23 08/16/23 Rx tabs Patient hx anesthesia problems: none Family hx anesthesia problems: none Results Review: All pre-operative results and documents have been reviewed as part of the pre-operative evaluation. [facility] Past Medical History Medical History Abdominal pain Anxiety Benign hypertension Bloating Constipation Depression GERD (gastroesophageal reflux disease) History of colon polyps Insomnia Post-menopause on HRT (hormone replacement therapy) Recurrent UTI Vitamin D deficiency Surgical History Surgical History History of appendectomy (~06/2020) History of back surgery History of esophageal surgery History of fusion of lumbar spine History of hernia repair History of laparoscopic cholecystectomy History of partial hysterectomy History of tonsillectomy Family History Family History Father Family history of cardiovascular disease Acute myocardial infarction Mother Family history of lung cancer Family history of malignant neoplasm of breast in first degree relative Sibling Family history of genetic disorder Social History Social History Smoking status: Never smoker Second hand tobacco smoke exposure: Yes Alcohol intake: current Alcohol use details: Wine on occasion. Substance use: never Substance use type: does not use Lack of Transportation: No Lack of Food: Never True Current Housing: I Have Housing Concerned About Future Housing: No Difficulty Paying Gas/Electric Bills: No Difficulty Paying for Meds: No Currently Unemployed: No Education: High School Diploma/GED Difficulty w/ Childcare
[2023-08-16 11:36] VITALS: BP 137/79; PULSE 68; RESP 16; O2SAT 100
[2023-08-16 11:46] VITALS: BP 136/72; PULSE 58; RESP 16; O2SAT 99
[2023-08-16 11:56] VITALS: BP 170/72; PULSE 62; RESP 16; O2SAT 100
--- NOTE | 2023-08-16 12:10 | WPDANESPN ---
Anes - Prog Note Post-Op Date/Time: 08/16/23 12:10 Cardiovascular status: normal Respiratory status: normal Airway patency: baseline Mental status: baseline Post-Op hydration status: normal Vital Signs: Last Vital Signs Temp 37.0 C 08/16/23 10:14 Pulse 62 08/16/23 11:56 Resp 16 08/16/23 11:56 BP 170/72 H 08/16/23 11:56 Pulse Ox 100 08/16/23 11:56 O2 Del Method Room Air 08/16/23 11:56 Pain Score (VAS): 0/10 I/O: Intake & Output 08/15/23 08/16/23 08/16/23 23:59 07:59 15:59 Intake Total 800 Balance 800 Patient Feedback: Patient satisfied with anesthetic care.
== END 2023-08-16 12:15 | disposition home or self-care (01) ==
PROVIDERS: PCP Family Medicine; Visit Provider Internal Medicine Gastroenterology
PROC: 0DJ08ZZ Inspection of Upper Intestinal Tract, Via Natural or Artificial Opening Endoscopic (ICD-10-PCS; CPT 43235; principal; 2023-08-16 11:30)
PROC: 0DJD8ZZ Inspection of Lower Intestinal Tract, Via Natural or Artificial Opening Endoscopic (ICD-10-PCS; CPT 45378; 2023-08-16 11:30)
DX: Z86.010 Personal history of colon polyps (principal); D12.2 Benign neoplasm of ascending colon; K64.8 Other hemorrhoids; R14.0 Abdominal distension (gaseous)
CPT/HCPCS: 45385; 43239

== ENCOUNTER 2023-10-10 14:23 | Outpatient (CLI) | payer MEDICARE, SELFPAY ==
[2023-10-10 14:34] LABS: Basophils Absolute Auto 0.06 K/mm3 (0.00-0.10); Basophils Percent Auto 0.8 % (0.0-1.0); Eosinophils Absolute Auto 0.09 K/mm3 (0.02-0.50); Eosinophils Percent Auto 1.2 % (1.0-6.0); Hematocrit 35.2 % (35.0-42.0); Hemoglobin 11.9 g/dL (11.7-13.8); Immature Granulocyte Absolute 0.02 K/mm3 (0.00-0.00); Immature Granulocyte Percent A 0.3 % (0.0-0.0); Lymphocytes Absolute Auto 3.09 K/mm3 (1.10-4.50); Lymphocytes Percent Auto 41.3 % (18.0-42.0); Mean Corpuscular HGB Conc 33.8 g/dL (32-36); Mean Corpuscular Hemoglobin 30.5 pg (27.0-31.0); Mean Corpuscular Volume 90.3 fL (78.0-102.0); Mean Platelet Volume 9.4 fl (9.2-11.8); Monocytes Absolute Auto 0.62 K/mm3 (0.10-0.90); Monocytes Percent Auto 8.3 % (2.0-11.0); Neutrophils Absolute Auto 3.61 K/mm3 (1.70-7.20); Neutrophils Percent Auto 48.1 % (50.0-70.0); Platelet Count Result 304 K/mm3 (150-420); Red Cell Distribution Width 12.3 % (11.6-14.4); White Blood Count 7.5 K/mm3 (4.8-10.8)
[2023-10-10 15:20] LABS: Hemoglobin A1C 5.5 % (<5.7)
[2023-10-10 15:27] LABS: Alanine Aminotransferase 18 U/L (14-59); Albumin Level 3.7 g/dL (3.4-5.0); Alkaline Phosphatase 93 U/L (46-116); Anion Gap 8 mmol/L (4-12); Aspartate Amino Transferase 15 U/L (15-37); Bilirubin,Total 0.3 mg/dL (0.00-1.00); Blood Urea Nitrogen 10 mg/dL (7-18); Calcium 9.4 mg/dL (8.5-10.1); Carbon Dioxide 27 mmol/L (21-32); Chloride 100 mmol/L (98-108); Cholesterol 177 mg/dL (0-200); Estimated Glomerular Filt Rate > 60; Glucose 105 mg/dL (70-99); HDL Direct 61 mg/dL (40-60); LDL Cholesterol Calculated 91 mg/dL (<130); Osmolality Calculated 279 mOsm/kg (285-295); Potassium 4.3 mmol/L (3.5-5.1); Sodium 135 mmol/L (136-145); Total Protein 6.1 g/dL (6.4-8.2); Triglycerides 123 mg/dL (0-150)
[2023-10-10 16:08] LABS: Thyroid Stimulating Hormone Reflex 1.52 u/IU/mL (0.36-3.74)
== END 2023-10-10 14:24 | disposition home or self-care (01) ==
LOC: CHSLAB 14:24
PROVIDERS: PCP Family Medicine; Visit Provider Family Medicine
DX: R53.83 Other fatigue (principal); I10 Essential (primary) hypertension; E78.2 Mixed hyperlipidemia; R73.03 Prediabetes
CPT/HCPCS: 36415; 80053; 80061; 83036; 84443; 85025

== ENCOUNTER 2024-07-30 12:46 | Outpatient (CLI) | payer MEDICARE, SELFPAY ==
--- OUTSIDE RECORDS SUMMARY | 2024-07-30 13:12 | XMS_ITS | Referral Summary ---
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 Name Role Phone Jayda Chakraborty MD Primary Care Provider [phone] Allergies Active Allergy Reactions Criticality Noted Date Comments Meperidine Sulfa (Sulfonamide Antibiotics) Medications busPIRone (BUSPAR) 5 mg tablet Take 1 tablet (5 mg total) by mouth 2 (two) times a day Active calcium carbonate (TUMS) 1,250 mg (500 mg elemental) chewable tablet Take 1 tablet (1,250 mg total) by mouth daily Active DULoxetine DR (CYMBALTA) 60 mg capsule Take 1 capsule (60 mg total) by mouth daily Active ergocalciferol (VITAMIN D) 50,000 unit capsule Take 1.25 mg by mouth 2 Active fluticasone propionate (FLONASE) 50 mcg/actuation nasal spray Administer into affected nostril(s) 1 Active gabapentin (NEURONTIN) 300 mg capsule Take 1 capsule (300 mg total) by mouth 3 (three) times a day 1 Active HYDROcodone-geetha taminophen (NORCO) 5-325 mg per tablet Take 1 tablet by mouth every 6 (six) hours as needed 3 Active hyoscyamine (LEVSIN) 0.125 mg tablet TAKE 1 TABLET BY MOUTH FOUR TIMES DAILY NEEDED FOR INDIGESTION 4 Active lisinopriL (PRINIVIL,ZESTR IL) 10 mg tablet Take 1.5 tablets (15 mg total) by mouth daily Active magnesium chloride 64 mg of elemental magnesium delayed release tablet Take 64 mg by mouth daily Active traZODone (DESYREL) 50 mg tablet Take 2 tablets (100 mg total) by mouth daily 2 Active Active Problems Problem Noted Date Diagnosed Date Hiatal hernia 08/12/2014 Social History Tobacco Use Types Packs/Day Years Used Date Smoking Tobacco: Never Comments Unknown Sex and Gender Information Value Date Recorded Sex Assigned at Not on file Legal Sex Female 7:50 AM [employer] Gender Identity Not on file Sexual Orientation Not on file Last Filed Vital Signs Vital Sign Reading Time Taken Comments Blood Pressure 135/82 10/03/2014 1:50 PM CDT Pulse 70 10/03/2014 1:50 PM CDT Temperature - - Respiratory Rate - - Oxygen Saturation - - Inhaled Oxygen Concentration - - Weight 65.4 kg (144 lb 4 oz) 10/03/2014 1:50 PM CDT Height 157.5 cm (5' 2) 10/03/2014 1:50 PM CDT Body Mass Index 26.38 10/03/2014 1:50 PM CDT Plan of Treatment Not on file Insurance [facility] MEDICARE ADVANTAGE UHC MEDICARE ADVANTAGE Care Teams Batch Plant Supervisor Relationship Specialty Start Date End Date Jayda Chakraborty MD [address] [phone] PCP - General Family Medicine 03/20/24
--- OUTSIDE RECORDS SUMMARY | 2024-07-30 13:12 | XMS_ITS | Data Portability ---
Author Organization [place] [facility], Main Office Address [address] [place] [address] Care Team Providers Care Hygiene Assistant Name Role Phone CRISTOBAL VANN Primary Care Provider CRISTOBAL VANN Referring Provider [phone] Assessment Encounter Date Assessment Date Assessment LastModified by Organization Details LastModified Time 03/08/2023 03/08/2023 78-year-old patient that presents today for right thumb pain that has been going on for many years. She was previously seen by Dr. Coates for this issue. She states that she has been wearing the braces that he gave her but it is not helping. He told her that the next step would be cortisone injection, she would like to try that today. She does take pain medications for her back but it does not help with the thumb. She states she is having difficulty at work with pinching motions, which she has to do often. Physical exam: Tenderness with palpitation around the CMC joint. Positive CMC grind. No issues with thumb range of motion. Sensation intact throughout. Today we discussed the risks and benefits of a cortisone injection. She elected to proceed with the injection today. She can continue to wear the braces as needed and take anti-inflammato ada. We can see her back as needed for pain. 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 We saw her at the end of February she received cortisone injections. Those worked quite well for her, but wore off after a little over a month. She returns today seeking repeat injections. She has not taking any medications or wearing the braces anymore. She is tenderness to palpation of the thumb CMC bilaterally. Pain and weakness with collar packer and pinch. Sensation intact to light touch throughout, 2+ radial pulse. We discussed that it is a little soon to repeat the injections, as we want wait 3 or 4 months in between. She should resume taking her anti-inflammato ada, and going to the brace as needed. We also discussed surgery, given the failure of conservative management so far. She wants to continue trying the injections and we will make another appointment in a month or 2 to come back. Not available 05/17/2023 11:58:41 07/05/2023 07/05/2023 78-year-old female presents for follow-up of her right thumb CMC arthritis. She had an injection in February and we saw her last month where she wanted a repeat injection but it was too soon at the time. The last injection only lasted about a month, but she wants a repeat injection. We have previously discussed CMC arthroplasty with her but she does not want to consider that this time. She still rates her pain as 10/10. She has positive grind, pain at the thumb CMC joint. Sensation intact to light touch throughout, 2+ radial pulse. We proceeded with the cortisone injection today. We will have her follow-up as needed, for her next injection, or when she is ready to proceed with surgery. He is in agreement with the plan. Not available 07/06/2023 14:54:48 11/08/2023 11/08/2023 78-year-old female presents for follow-up of her right thumb CMC arthritis. She was last seen in June of this year and got a cortisone injection. That did not work well for her and it wore off very quickly. She still has significant pain rated 7/10, difficulty with gripping. She returns today for a another cortisone injection, she does not want to consider surgery still. She has tenderness over the thumb CMC joint. Positive grind. Sensation intact to light touch, 2+ radial pulse We repeated a cortisone injection today which she tolerated well. We had the discussion again of cortisone every few months if it is effective, or surgery for CMC arthroplasty. She may follow-up as needed. Not available 11/08/2023 18:06:40 Plan of Treatment Reminders Order Date Submit Date Provider Last Modified By Organization Details Last Modified Time Details Appointments None recorded. Lab None recorded. Referral None recorded. Procedures injection/a spiration joint/bursa (PROC) 2023 024 [email or web address] In-Office Order, Internal Use Only DO Not Attach Compendium DO Not Attach Compendium, Do Not Delete/merge, [id number] 4 14:38:01 injection/a spiration joint/bursa (PROC) 2023 024 [email or web address] 3 In-Office Order, Internal Use Only DO Not Attach Compendium DO Not Attach Compendium, Do Not Delete/merge, [id number] 4 16:02:51 injection/a spiration joint/bursa (PROC) 2023 024 [email or web address] 3 In-Office Order, Internal Use Only DO Not Attach Compendium DO Not Attach Compendium, Do Not Delete/merge, [id number] 4 14:42:41 Surgeries None recorded. Imaging XR, wrist, 3 or more view 2022 023 [email or web address] [facility] [place], [address], [place], [address], 3 10:12:28 Medication Orders bupivacaine HCl 0.5 % (5 mg/mL) injection solution 2023 024 Not available 4 11:54:30 Kenalog 10 mg/mL suspension for injection 2023 024 Not available 4 11:54:30 bupivacaine HCl 0.5 % (5 mg/mL) injection solution 2023 024 [email or web address] [id number], [address] [place], [place], [id number], 4 16:52:17 Kenalog 10 mg/mL suspension for injection 2023 024 [email or web address]88[facility], [address], [place], [id number], 4 16:52:17 bupivacaine HCl 0.5 % (5 mg/mL) injection solution 2023 024 [email or web address] [facility] #14451, [address], [place], [id number], 4 15:42:17 Kenalog 10 mg/mL suspension for injection 2023 024 [email or web address] [facility] #[id number], [address], [place], [id number], 4 08:56:18 Patient TargetsNo targets recorded. Patient InstructionsNo instructions recorded. Reason for Referral None Reported. Results Created Date Observation Date Name Description Value Unit Range Abnormal Flag Note LastModifiedBy Organization Detail LastModifiedTime 06/15/19 23 XR, wrist , 3 or more view No observ ation record ed. [email or web address] [facility] [place] [address], [place], [address], 02/02/2023 10:12:35 Result Notes None recorded. Problems Name Problem SNOMED Code Status Onset Date Resolution Date Notes Provider Name and Address Organization Details Recorded Time Bilateral wrist pain 7579483945141 9105 Active 2022 DONTE Dodson null, [facility] 3 15:16:39 Bilateral carpal tunnel syndrome 5988764631461 9101 Active 2022 Eddy Coates MD [address] [facility], [facility] [address], [place], [address], [facility] 3 16:39:04 Osteoarthri tis of joint of bilateral hands 6826959278176 09 Active 2022 Eddy Coates MD [address] [facility], [facility] [address], [place], [address], [facility] 3 16:39:09 Pain of right wrist 5108302548288 00 Active 2023 [facility] 4 15:44:42 Osteoarthro sis of the carpometaca rpal joint of the thumb 00511735 Active 2023 Davis Shook MD [address] [facility], [address] [address], [place], [address] , [facility] 4 18:06:48 Problem Notes None recorded. Procedures Surgical History Date Name Laterality Status Provider Name and Address Organization Details Recorded Time 4 Ortho - Cortisone Injection completed Davis Shook MD [address], [place], [address], [facility] 11/08/2023 18:05:48 4 Ortho - Cortisone Injection completed Davis Shook MD [address], [address], [place], [address], [facility] 07/06/2023 14:55:11 4 Ortho - Cortisone Injection completed Jenny Thomas NP [address], [address] [facility], [place], [address], [facility] 03/08/2023 14:32:09 esophageal hiatus hernia repair completed DONTE Dodson [facility] 06/14/2022 15:15:30 Back Surgeries completed DONTE Dodson [facility] 06/14/2022 15:15:38 Imaging Results None recorded. Procedure Notes None recorded. Medical Equipment None Reported. Allergies Allergen ID Allergen Name Allergen Category Reaction Reaction Severity Criticality Documentation Date Start Date Code Code System Note Provider Name and Address Organization Details Recorded Time 65004 Substance with sulfonami de structure and antibacte rial mechanism of action (substanc e) medicatio n Not available Not available Not available 06/14/2022 62721 8003 SNOMED DONTE Dodson, [facility] 3 15:13:06 Medications Name Sig Start Date Stop Date Status Note LastModified by Organization Details LastModified Time methocarbam ol 500 mg tablet TAKE 1 TABLET BY MOUTH THREE TIMES DAILY NEEDED FOR MUSCLE SPASMS active Not Available Not Available No t Available buspirone 5 mg tablet TAKE 1 TABLET BY MOUTH THREE TIMES DAILY NEEDED FOR STRESS active Not Available Not Available No t Available trazodone 50 mg tablet TAKE 2 TABLETS BY MOUTH EVERY DAY AT BEDTIME NEEDED FOR INSOMNIA active Not Available Not Available No t Available ofloxacin 0.3 % eye drops INSTILL 1 DROP IN RIGHT EYE FOUR TIMES DAILY 06/14 completed Not Available Not Available Not Available benzonatate 200 mg capsule TAKE 1 CAPSULE BY MOUTH THREE TIMES DAILY FOR 10 DAYS NEEDED FOR COUGH 06/06 completed Not Available Not Available Not Available cephalexin 250 mg capsule TAKE 1 CAPSULE BY MOUTH EVERY 8 HOURS FOR 7 DAYS 06/06 completed Not Available Not Available Not Available hydrocodone 5 mg-acetamin ophen 325 mg tablet TAKE 1 TABLET BY MOUTH EVERY 4 HOURS NEEDED FOR PAIN active Not Available Not Available No t Available bupivacaine HCl 0.5 % (5 mg/mL) injection solution Take 1 mL by injection route. 2023 active Not Available Not Available Not Avai lable metronidazo le 250 mg tablet TAKE 1 TABLET BY MOUTH EVERY 8 HOURS FOR 10 DAYS active Not Available Not Available No t Available omeprazole 40 mg capsule,del ayed release TAKE 1 CAPSULE BY MOUTH TWICE DAILY BEFORE MEALS FOR GASTRITIS active Not Available Not Available No t Available dicyclomine 20 mg tablet TAKE 1 TABLET BY MOUTH THREE TIMES DAILY NEEDED FOR ABDOMINAL DISTENTIO N active Not Available Not Available No t Available Kenalog 10 mg/mL suspension for injection Take 1 mL by injection route. 2023 active [facility]: 0003- 0494- 20 Not Available Not Available Not Available benzonatate 100 mg capsule TAKE 1 CAPSULE BY MOUTH THREE TIMES DAILY NEEDED FOR COUGH 06/14 completed Not Available Not Available Not Available doxycycline monohydrate 100 mg capsule TAKE 1 CAPSULE BY MOUTH TWICE DAILY FOR 10 DAYS 05/03 completed Not Available Not Available Not Available cephalexin 500 mg capsule TAKE 1 CAPSULE BY MOUTH EVERY 12 HOURS FOR 10 DAYS 06/14 completed Not Available Not Available Not Available nortriptyli ne 10 mg capsule TAKE 1 CAPSULE BY MOUTH EVERY DAY AT BEDTIME 07/04 completed Not Available Not Available Not Available lisinopril 10 mg tablet TAKE 1 TABLET BY MOUTH DAILY active Not Available Not Available No t Available gabapentin 300 mg capsule TAKE 1 CAPSULE BY MOUTH THREE TIMES DAILY active Not Available Not Available No t Available lisinopril 5 mg tablet TAKE 1 TABLET BY MOUTH DAILY ALONG WITH THE 10MG TABLET TO EQUAL 15MG active Not Available Not Available No t Available estradiol 0.5 mg tablet TAKE 1 TABLET BY MOUTH DAILY active Not Available Not Available No t Available ergocalcife rol (vitamin D2) 1,250 mcg (50,000 unit) capsule TAKE 1 CAPSULE BY MOUTH WEEKLY active Not Available Not Available No t Available fluticasone propionate 50 mcg/actuati on nasal spray,suspe nsion SHAKE LIQUID AND USE 2 SPRAYS IN EACH NOSTRIL DAILY active Not Available Not Available No t Available dicyclomine 10 mg capsule TAKE 1 CAPSULE BY MOUTH THREE TIMES DAILY NEEDED 06/14 completed Not Available Not Available Not Available duloxetine 30 mg capsule,del ayed release TAKE 1 CAPSULE BY MOUTH DAILY 05/03 completed Not Available Not Available Not Available duloxetine 60 mg capsule,del ayed release TAKE 1 CAPSULE BY MOUTH DAILY active Not Available Not Available No t Available sodium,pota ssium,mag sulfates 17.5 gram-3.13 gram-1.6 gram oral soln FOLLOW DOCTOR WRITTEN INSTRUCTI ONS active Not Available Not Available No t Available Linzess 72 mcg capsule TAKE 1 CAPSULE BY MOUTH DAILY active Not Available Not Available No t Available BinaxNOW COVID-19 Ag Self Test kit Use as Directed on the Package 06/14 completed Not Available Not Available Not Available Paxlovid 300 mg (150 mg x 2)-100 mg tablets in a dose pack TK 2 NIRMATREL VIR TS AND 1 RITONAVIR T TOGETHER PO BID FOR 5 DAYS BID FOR 5 DAYS 06/14 completed Not Available Not Available Not Available Vitals Date Recorded Body height Body mass index (BMI) Body weight Provider Name and Address Organization Details Last Updated DateTime 03/08/2023 157.48 cm 24.3 kg/m2 73654.79 g Chelsey Singh CNA [place] [facility] [employer] [facility] 03/08/2023 14:12:36 Date Recorded Body height Body mass index (BMI) Body weight Provider Name and Address Organization Details Last Updated DateTime 05/17/2023 157.48 cm 23.8 kg/m2 54520.01 missy Jones Kimberlee [facility] [employer] [facility] 05/17/2023 11:36:03 Date Recorded Body height Body mass index (BMI) Body weight Provider Name and Address Organization Details Last Updated DateTime 06/14/2022 157.48 cm 24.1 kg/m2 36207.19 missy [place] DONTE [facility] [employer] [facility] 06/14/2022 15:12:50 Date Recorded Body height Body mass index (BMI) Body weight Provider Name and Address Organization Details Last Updated DateTime 07/05/2023 157.48 cm 23.6 kg/m2 [address]50.[address] [facility] [employer] [facility] 07/05/2023 15:41:45 Date Recorded Body height Body mass index (BMI) Body weight Provider Name and Address Organization Details Last Updated DateTime 11/08/2023 157.48 cm 23.8 kg/m2 [address] [facility] [employer] [facility] 11/08/2023 14:33:19 Social History Question Answer Notes LastModified by Socratic Details LastModified Time Tobacco Smoking Status Never Smoker Isha [place] DONTE [facility] [employer] [facility] 06/14/2022 15:15:12 What Was The Date Of Your Most Recent Tobacco Screening? 07/05/2023 Information not available 07/05/2023 Sex: Unknown Functional Status Question Answer Note LastModified by Socratic Details LastModified Time What is your level of alcohol consumption? Occasional [email or web address] Information not available 06/14/2022 Mental Status None recorded. Family History Relationship Description Onset Age of this Age Resolved Age Notes LastModified by Organization Details LastModified Time Father Heart disease [email or web address] Not available 2022 15:14:48 Mother Family history of malignant neoplasm [email or web address] Not available 2022 15:15:00 Medical History Condition Response ARTHRITIS Y HYPERTENSION Y Gynecological HistoryNo gynecological history recorded. Obstetrics History GPAL:G 0 P 0 0 0 0 Past Encounters Encounter ID Performer Location Encounter Start Date Encounter Closed Date Diagnosis/Indication Diagnosis SNOMED-CT Code Diagnosis ICD10 Code Diagnosis Note [id number] Eddy Coates MD [facility] [address] [place] [address] 06/14/2022 14:46:40 06/14/2022 16:02:51 Bilateral wrist pain 1785000993 0432533 M25.531 M25.532 Osteoarthr itis of joint of bilateral hands 4803221459 33864 M19.041 patient can do anti-infla mmatory for the osteoarthr itis if no improvemen t over time we can inject the involved joints. If still no improvemen t last resort for the D IP joints would be arthrodesi s for the thumb CMC joint would be a tendon interposit ion arthroplas ty Bilateral carpal tunnel syndrome 2084234126 0264507 G56.03 we provided the patient with well fitted wrist braces. Can wear the braces at night. We will see her back in a few months for follow-up if no improvemen t will get an EMG nerve conduction test [id number] Davis Shook MD [facility] [place] [address] [place] [address] 03/08/2023 14:03:45 03/08/2023 14:32:48 Bilateral wrist pain 5141816857 1968085 M25.531 M25.676 [id number] Davis Shook MD [facility] [place] [address] [place] [address] 05/17/2023 11:26:57 05/17/2023 11:56:05 Bilateral wrist pain 7984752429 7997895 M25.531 M25.320 [id number] Davis Shook MD [facility] [place] [address] [place] [address] 07/05/2023 15:25:58 07/05/2023 16:01:31 Pain of right wrist 9906468593 77897 M25.986 [id number] Davis Shook MD [facility] [place] [address] [place] [address] 11/08/2023 14:29:28 11/08/2023 15:15:38 Pain of right wrist 8302232152 86138 M25.531 Bilateral carpal tunnel syndrome 6294664328 4942050 G56.03 Osteoarthr osis of the carpometacarpal joint of the thumb 55659292 M18.9 Health Concerns Section Related Observation LastModified by Organization Detai ls LastModified Time None Recorded Concern Status LastModified by Organization Details LastModified Time None Recorded Advance Directives Directive None Recorded Payers Insurance Date Sequence Insurance Name Policy Number Policy Lowery Covered Member ID Lowery Member ID Guarantor Name 11/08/2023 1 [facility] (MEDICARE REPLACEMENT/A DVANTAGE - PPO) [id number] Silvana Rhodes [id number] Silvana Rhodes Notes Date Note Type Note Provider Name and Address Organization Details Recorded Time 06/14/2022 text/html Patient comes in today for evaluation complains of pain both thumbs problems with collar packer and pinch nothing really has helped so far been going on for several months now exacerbated by activities of daily living Eddy Coates MD [address] [place] [address], [address] [address], [place], [address], [facility] 06/14/2022 16:39:57 OBGyn Episode No OBEpisode recorded.
--- OUTSIDE RECORDS SUMMARY | 2024-07-30 13:12 | XMS_ITS | Clinical Summary ---
Author Organization [facility] Address [address] [place] [address] Care Team Providers Care Aerial Installer Name Role Phone Jayda Chakraborty MD Primary Care Provider [phone] Allergies Active Allergy Reactions Criticality Noted Date Comments Meperidine Unknown 02/20/2024 Sulfa Antibiotics Unknown 02/20/2024 Medications fluticasone propionate (FLONASE) 50 MCG/ACT nasal spray Active lisinopril (PRINIVIL) 10 MG tablet Take 1.5 tablets (15 mg total) by mouth daily. Active DULoxetine (CYMBALTA) 60 MG capsule Take 1 capsule (60 mg total) by mouth daily. Active traZODone (DESYREL) 50 MG tablet Take 2 tablets (100 mg total) by mouth nightly at bedtime. Active gabapentin (NEURONTIN) 300 MG capsule Take 1 capsule (300 mg total) by mouth 3 (three) times daily. Active busPIRone (BUSPAR) 5 MG tablet Take 1 tablet (5 mg total) by mouth 2 (two) times daily. Active vitamin D2, ergocalciferol, (DRISDOL) 1.25 mg capsule Take 1 capsule (1.25 mg total) by mouth. Active HYDROcodone-geetha taminophen (NORCO) 5-325 MG tablet Take 1 tablet by mouth every 6 (six) hours as needed for Pain. Active magnesium chloride EC (MAG64) 64 MG Tab EC tablet Take 1 tablet (64 mg total) by mouth daily. Active calcium carbonate 1250 (500 Ca) MG chewable tablet Chew 1 tablet (1,250 mg total) by mouth daily. Active vitamin B-12 (CYANOCOBALAMIN ) (CYANOCOBALAMIN ) 1000 mcg tablet Take 1 tablet (1,000 mcg total) by mouth daily. Active Active Problems No known active problems Social History Tobacco Use Types Packs/Day Years Used Date Smoking Tobacco: Never Smokeless Tobacco: Never Tobacco Cessation:Counseling Given: Not Answered Alcohol Use Standard Drinks/Week Comments Yes 0 (1 standard drink = 0.6 oz pur e alcohol) occasional Comments No Sex and Gender Information Value Date Recorded Sex Assigned at Female 02/28/2024 12:09 PM [employer] Legal Sex Female 5:54 PM [employer] Gender Identity Not on file Sexual Orientation Not on file Last Filed Vital Signs Vital Sign Reading Time Taken Comments Blood Pressure 160/78 04/03/2024 10:17 AM [employer] Pulse 69 04/03/2024 10:17 AM [employer] Temperature 35.7 C (96.2 F) 04/03/2024 10:17 AM [employer] Respiratory Rate 16 04/03/2024 10:17 AM [employer] Oxygen Saturation 95% 04/03/2024 10:17 AM [employer] Inhaled Oxygen Concentration - - Weight 54.4 kg (120 lb) 04/03/2024 9:09 AM [employer] Height 157.5 cm (5' 2) 04/03/2024 9:09 AM [employer] Body Mass Index 21.95 04/03/2024 9:09 AM [employer] Plan of Treatment Health Maintenance Due Date Last Done Comments Hepatitis C 01/12/1963 Zoster Vaccines (1 of 2) 01/12/1996 Annual Medicare Wellness Visit 2011 Dexa Scan (General) 2011 Pneumococcal Vaccine: 50+ Years (3 of 3 - PCV20 or PCV21) 11/05/2020 11/06/2015, 02/14/2008 RSV Immunization or 60+ Years (1 - 1-dose 75+ series) 2021 COVID-19 Vaccine ( season) 2024 11/16/2023, 02/08/2023, 11/09/2021, Additional history exists DTaP, Tdap and Td Vaccines (3 - Td or Tdap) 10/08/2029 10/09/2019, 08/22/2009, 10/07/2004 Meningococcal B Vaccine Aged Out No l onger eligible based on patient's age to complete this topic Meningococcal Vaccine Aged Out No yady logan eligible based on patient's age to complete this topic RSV Immunizations Under 20 Months Aged Out No longer eligible based on patient's age to complete this topic Medical Devices Implanted Type Area Climbing Guide Device Identifier Shelf Expiration Date Model / Serial / Lot Iol [employer] Simplicity Dcb00 - [id number] Implanted:Qty: 1 on 02/28/2024 by Mona James MD at [facility] Lens Left: Eye [employer] [id number] 04/04/2026 DCB00 / [id number] / [id number] [employer] Simplicity Iol Implanted:Qty: 1 on 04/03/2024 by Mona James MD at [facility] Right: Eye [id number] 12/12/2026 / [id number] / [id number] Insurance [facility] Care Teams Aerial Installer Relationship Specialty Start Date End Date Jayda Chakraborty MD [address] [place] [address] PCP - General FAMILY PRACTICE 02/28/24
--- OUTSIDE RECORDS SUMMARY | 2024-07-30 13:12 | XMS_ITS | Clinical Summary ---
Author Organization [facility] Address [address] [place] [address] Care Team Providers Care Umbrella Tipper Machine Name Role Phone Jayda Chakraborty MD Primary Care Provider [phone] Allergies Active Allergy Reactions Criticality Noted Date [...] Noted Date Diagnosed Date Hiatal hernia 08/12/2014 Surgical History Surgery Date Site/Laterality Comments APPENDECTOMY PARTIAL HYSTERECTOMY LAPAROSCOPY REPAIR HIATAL HERNIA BACK SURGERY HIP ARTHROPLASTY Medical History Medical History Date Comments GERD (gastroesophageal reflux disease) Hypertension Family History Medical History Relation Name Comments Cancer Mother Family history of malignant neoplasm - (Added by TW Conv) Relation Name Status Comments Mother Social History Tobacco Use Types Packs/Day Years Used Date Smoking Tobacco: Never Comments Unknown Sex and Gender Information Value Date Recorded Sex Assigned at Not on file Legal Sex Female 7:50 AM [employer] 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 Gender Identity Not on file Sexual Orientation Not on file Obstetrics History Last Filed Vital Signs Vital Sign Reading [...] 10/03/2014 1:50 PM CDT Plan of Treatment Health Maintenance Due Date Last Done Comments Depression Screening 1945 Fall Risk Assessment 1945 Hepatitis C Screening 1945 Osteoporosis Screening-Bone Density Scan 1945 Hepatitis B Screening 01/12/1964 Zoster Vaccine (1 of 2) 01/12/1996 Well Visit 65+ 2011 Pneumococcal vaccine 65+ (3 of 3 - PCV20 or PCV21) 11/05/2020 11/06/2015, 02/14/2008 Covid-19 Vaccine (2023-2 5 season) 2024 11/16/2023, 02/08/2023, 11/09/2021, Additional history exists DTaP/Tdap/Td Vaccine (3 - Td or Tdap) 10/08/2029 10/09/2019, 08/22/2009, 10/07/2004 Influenza Vaccine Completed 11/16/2023, , 11/02/2021, Additional history exists Insurance [facility] MEDICARE ADVANTAGE [id number] MEDIC[facility] ADVANTAGE Care Teams Umbrella Tipper Machine Relationship Specialty Start Date End Date Jayda Chakraborty MD [address] [id number] PCP - General Family Medicine 03/20/24
--- OUTSIDE RECORDS SUMMARY | 2024-07-30 13:12 | XMS_ITS | Encounter Summary ---
Author Organization [facility] Address [address] [place] [address] Care Team Providers Care Loss Prevention Auditor Name Role Phone Maynor Jones Primary Care Provider Jayda Redd MD Primary Care Provider Encounter Details Date Type Department Care Team (Late st Contact Info) Description 07/02/2020 Telephone [facility] [address] [place] [id number] Julieta Moon Social History Tobacco Use Types Packs/Day Years Used Date Smoking Tobacco: Never Smokeless Tobacco: Never Alcohol Use Standard Drinks/Week Comments Yes 2 (1 standard drink = 0.6 oz pur e alcohol) per week Comments Unknown Sex and Gender Information Value Date Recorded Sex Assigned at Not on file Legal Sex Female 10:10 AM CDT Gender Identity Not on file Sexual Orientation Not on file COVID-19 Exposure Response Date Recorded In the last month, have you been in contact with someone who was confirmed or suspected to have Coronavirus / COVID-19? No / Unsure 06/22/2020 2:22 PM CDT documented as of this encounter Miscellaneous Notes * Telephone Encounter - Julieta Moon - 07/02/2020 4:03 PM CDT Left voice message with surgery instructions. Arrival time 0530am to [facility] 1st floor ACU. NPO after midnight. documented in this encounter Plan of Treatment Not on file documented as of this encounter Visit Diagnoses Not on filedocumented in this encounter Care Teams Loss Prevention Auditor Relationship Specialty Start Date End Date Maynor Jones Update Information PCP - General 05/22/20 08/29/21 Jayda Chakraborty MD [address] [place] [address] PCP - General Family Medicine 08/30/21 documented as of this encounter
--- OUTSIDE RECORDS SUMMARY | 2024-07-30 13:12 | XMS_ITS | Clinical Summary ---
Author Organization [facility] Address [address] [place] [address] Care Team Providers Care Plan Consultant Name Role Phone Jayda Chakraborty MD Primary Care Provider [phone] Source Comments [facility],non-owned Affiliates and Associated Physician Practices is amultiple site organization consisting of ambulatory clinics and hospital sitesin [place], [place], [place] and [place]. This disclosure is being madepursuant to the Care Everywhere program and may not contain all information available regarding this patient. Last updated 17.[facility] [employer] ([employer] Allergies Active Allergy Reactions Criticality Noted Date Comments Meperidine Urticaria,Rash Medium 06/08/2020 Sulfa Drugs Urticaria,Rash Medium 06/08/2020 Medications * Be aware that medications may not be up to date on this document. Alwaysverify current medications with the patient. calcium carbonate-vitam in D 600-400 MG-UNIT tablet Indications: once a day Active fluticasone propionate (FLONASE) 50 MCG/ACT nasal spray USE 2 SPRAY(S) IN EACH NOSTRIL DAILY 1 Active gabapentin (NEURONTIN) 300 MG capsule Take 1 (one) capsule by mouth 2 times daily 1 Active lisinopril (PRINIVIL; ZESTRIL) 10 MG tablet Take 1.5 (one and one-half) tablets by mouth once daily 15mg daily (5+10mg tablet) Active omeprazole (PRILOSEC) 40 MG capsule TAKE 1 CAPSULE BY MOUTH TWICE DAILY BEFORE MEALS FOR GASTRITIS 0 Active lisinopril (PRINIVIL;ZESTR IL) 5 MG tablet TAKE 1 TABLET BY MOUTH ONCE DAILY TAKE WITH 10MG TABLET TO EQUAL 15MG DOSE DAILY. 1 Active DULoxetine (CYMBALTA) 30 MG capsule Take 3 (three) capsules by mouth once daily 2 Active vitamin D, ergocalciferol, (DRISDOL) 1.25 MG (81987 UT) capsule TAKE 1 CAPSULE BY MOUTH WEEKLY 2 Active traZODone (DESYREL) 50 MG tablet TAKE 2 TABLETS BY MOUTH EVERY NIGHT AT BEDTIME NEEDED FOR INSOMNIA 2 Active cyanocobalamin (VITAMIN B-12) 1000 MCG tablet Take 1 (one) tablet by mouth once daily Active magnesium 250 MG tablet Take 1 (one) tablet by mouth once daily Active estradiol (Estrace) 0.5 MG tablet Take 1 (one) tablet by mouth once daily 3 Active HYDROcodone-geetha taminophen ([place]) 5-325 MG tablet Take 1 (one) tablet by mouth every 4 hours as needed pain 3 Active nortriptyline (Pamelor) 10 MG capsule TAKE 1 CAPSULE BY MOUTH EVERY DAY AT BEDTIME 3 Active HYDROcodone-geetha taminophen ([place]) 5-325 MG tabletIndicatio ns:S/P insertion of spinal cord stimulator Take 1 (one) tablet by mouth every 6 hours as needed for Pain 20 tablet 4 Active methocarbamol (Robaxin) 500 MG tablet Take 1 (one) tablet by mouth 3 times daily as needed for Muscle Spasms 42 tablet 4 Active Additional Information Patient not taking.Reported on 05/01/2023 Active Problems Problem Noted Date Diagnosed Date Radiculopathy, lumbar region Immunizations Immunization Administration Dates Next Due Covid Moderna primary monovalent 12+ yr 0.5mL ,04/21/2020 Social History Tobacco Use Types Packs/Day Years Used Date Smoking Tobacco: Never Smokeless Tobacco: Never Tobacco Cessation:Counseling Given: Not Answered Alcohol Use Standard Drinks/Week Comments Yes 2 (1 standard drink = 0.6 oz pur e alcohol) per week Comments No Sex and Gender Information Value Date Recorded Sex Assigned at Not on file Legal Sex Female 10:10 AM CDT Gender Identity Not on file Sexual Orientation Not on file Last Filed Vital Signs Vital Sign Reading Time Taken Comments Blood Pressure 173/79 05/01/2023 11:36 AM CDT Pulse 69 05/01/2023 11:36 AM CDT Temperature 36.5 C (97.7 F) 05/01/2023 11:36 AM CDT Respiratory Rate 18 03/22/2023 11:29 AM US ADMINISTRATIVE LAW JUDGE Oxygen Saturation 98% 05/01/2023 11:36 AM CDT Inhaled Oxygen Concentration - - Weight 60.1 kg (132 lb 8 oz) 05/01/2023 11:36 AM CDT Height 157.5 cm (5' 2) 05/01/2023 11:36 AM CDT Body Mass Index 24.23 05/01/2023 11:36 AM CDT Plan of Treatment Health Maintenance Due Date Last Done Comments BONE DENSITY TESTING 1945 Opioid Medication Agreement - Annual 1945 HEPATITIS C SCREENING 01/07/1964 DTAP/TDAP/TD VACCINES (1 - Tdap) 1965 PNEUMOCOCCAL VACCINE 50+ (1 of 1 - PCV) 01/12/1996 ZOSTER VACCINE (1 of 2) 01/12/1996 Respiratory Syncytial Virus (RSV) Vaccine Pt: or over 60 yrs (1 - 1-dose 75+ series) 2021 COVID-19 VACCINE (3 - 2023-2 5 season) 2023 05/20/2020, 04/21/2020 DEPRESSION SCREENING 02/14/2024 MEDICARE AWV CALENDAR YEAR 2024 INFLUENZA VACCINE (Season Ended) 2024 HEPATITIS B VACCINE Aged Out No longe r eligible based on patient's age to complete this topic HIB VACCINE Aged Out No longer eligi ble based on patient's age to complete this topic HPV VACCINE Aged Out No longer eligi ble based on patient's age to complete this topic MENINGOCOCCAL (Group B) VACCINE SHARED DECISION-MAKING Aged Out No longer eligible based on patient's age to complete this topic MENINGOCOCCAL GROUPS A/C/Y/W VACCINE Aged Out No longer eligible b ased on patient's age to complete this topic Medical Devices Implanted Type Area Sales Executive Insurance Device Identifier Shelf Expiration Date Model / Serial / Lot Screw Set Ti Spnl Brk Off Cd Hzn Nonster - Sn/A Implanted:Qty: 8 on 07/03/2020 by Sarthak Saucedo MD at [facility] N/A: Spine Lumbar Med[employer] 07/03/2030 [id number] / N/A / N/A Description:POSTERIOR Spcr 18 Deg 14x22 Implanted:Qty: 1 on 07/03/2020 by Sarthak Saucedo MD at [facility] N/A: Spine Lumbar Medtronic Sof[employer]or [employer] 07/04/2026 [id number] / / [id number] Description:L3-L4 Vic Spnl 100mm 5.5mm Cd Hzn Crv [place]rm[place] - Sn/A Implanted:Qty: 2 on 07/03/2020 by Sarthak Saucedo MD at [facility] Med[employer] Inc 07/03/2030 [id number] / N/A / N/A Description:posterior Screw 6.5mm 40mm Ma Spne Solera Cd Hzn - Sn/A Implanted:Qty: 1 on 07/03/2020 by Sarthak Saucedo MD at [facility] N/A: Spine Lumbar Medtronic Sof[employer]or [employer] 07/03/2030 [id number] / N/A / N/A Description:POSTERIOR Screw 6.5mm 45mm Ma Spne Solera Cd Hzn - Sn/A Implanted:Qty: 1 on 07/03/2020 by Sarthak Saucedo MD at [facility] N/A: Spine Lumbar Medtronic [employer] 07/03/2030 [id number] / N/A / N/A Description:POSTERIOR Screw 7.5mm 45mm Ma Spne Solera Cd Hzn - Sn/A Implanted:Qty: 3 on 07/03/2020 by Sarthak Saucedo MD at [facility] N/A: Spine Lumbar Med[employer] 07/03/2030 [id number] / N/A / N/A Description:POSTERIOR Screw 7.5mm 40mm Ma Spne Solera Cd Hzn - Sn/A Implanted:Qty: 3 on 07/03/2020 by Sarthak Saucedo MD at [facility] N/A: Spine Lumbar Medtronic [employer] 07/03/2030 [id number] / N/A / N/A Description:POSTERIOR Graft Bone Grftn Dbm Plif 10x2.5cm - [id number] Implanted:Qty: 1 on 07/03/2020 by Sarthak Saucedo MD at [facility] N/A: Spine Lumbar [employer] 04/02/2023 [id number] / [id number] / N/A Description:POSTERIOR Spcr Spnl [id number] Cpstn Cntrl 18d Peek - Sn/A Implanted:Qty: 2 on 07/03/2020 by Sarthak Saucedo MD at [facility] N/A: Spine Lumbar Medtronic Sofamor [employer] Spine 11/23/2024 [id number] / N/A / [id number] Description:POSTERIOR Spcr 12 Deg 11x22 - Sn/A Implanted:Qty: 2 on 07/03/2020 by Sarthak Saucedo MD at [facility] N/A: Spine Lumbar Medtronic [employer] 02/11/2028 [id number] / N/A / [id number] Description:POSTERIOR Spcr 18 Deg 14x22 Implanted:Qty: 1 on 07/03/2020 by Sarthak Saucedo MD at [facility] N/A: Spine Lumbar Medtronic [employer] 03/18/2028 [id number] / / [id number] Description:L3-L4 Lamitrode Tripole Implanted:Qty: 1 on 03/09/2023 by Sarthak Saucedo MD at [facility] N/A: Spine Thoracic [employer] 11/28/2024 [id number] / [id number] / [id number] [facility] Eterna Scs 16chnl Ipg - [id number] Implanted:Qty: 1 on 03/09/2023 by Sarthak Saucedo MD at [facility] Left: Back [employer] 02/22/2025 [id number] / [id number] / Description:Left Lower Back Insurance [facility] MANAGED MEDICARE ADV * Guarantor: SILVANA RHODES Account Type Relation to Patient Date of Phone Billing Address Personal/Family [address] [id number] SELF PAY NO INSURANCE Member Subscriber Plan / Payer (Ef fective for All Dates) Name:Silvana Rhodes Member ID:Not on file Relation to Subscriber:Not on file Name:SILVANA RHODES Subscriber ID:Not on file Address: [address] [place], [place] [address] Payer ID:Not on file Group ID:Not on file Type:Self Pay Address: [facility] MANAGED MEDICARE ADV * Guarantor: SILVANA RHODES Account Type Relation to Patient Date of Phone Billing Address Personal/Family [address] [id number] SELF PAY NO INSURANCE Member Subscriber Plan / Payer (Ef fective for All Dates) Name:Silvana Rhodes Member ID:Not on file Relation to Subscriber:Not on file Name:SILVANA RHODES Subscriber ID:Not on file Address: [address] [place], [place] [id number] Payer ID:Not on file Group ID:Not on file Type:Self Pay Address: [facility] MANAGED MEDICARE ADV * Guarantor: SILVANA RHODES Account Type Relation to Patient Date of Phone Billing Address Personal/Family [address] [id number] SELF PAY NO INSURANCE Member Subscriber Plan / Payer (Ef fective for All Dates) Name:Silvana Rhodes Member ID:Not on file Relation to Subscriber:Not on file Name:SILVANA RHODES Subscriber ID:Not on file Address: [address] [place], [place] [id number] Payer ID:Not on file Group ID:Not on file Type:Self Pay Address: [facility] MANAGED MEDICARE ADV Advance Directives * Full Code (Latest Code Status on File) Date Activated Date Inactivated Comments 07/03/2020 2:31 PM 07/08/2020 2:23 PM Care Teams Plan Consultant Relationship Specialty Start Date End Date Jayda Chakraborty MD [address] [place] [address] PCP - General Family Medicine 08/30/21
--- OUTSIDE RECORDS SUMMARY | 2024-07-30 13:12 | XMS_ITS | Encounter Summary ---
Author Organization [facility] Address [address] [place] [address] Care Team Providers Care Post Adoption Coordinator Name Role Phone Jayda Chakraborty MD Primary Care Provider [phone] Encounter Details Date Type Department Care Team (Late st Contact Info) Description 07/21/2018 Abstract [facility] CONVERSION [address] [place] [address] , Generic ConversionMD Social History Tobacco Use Types Packs/Day Years Used Date Smoking Tobacco: Never Assessed Comments Unknown Sex and Gender Information Value Date Recorded Sex Assigned at Female 02/28/2024 12:09 PM RECONCILER Legal Sex Female 5:54 PM RECONCILER Gender Identity Not on file Sexual Orientation Not on file documented as of this encounter Plan of Treatment Not on file documented as of this encounter Visit Diagnoses Not on filedocumented in this encounter Care Teams Post Adoption Coordinator Relationship Specialty Start Date End Date Jayda Chakraborty MD [address] [place] [address] PCP - General FAMILY PRACTICE 02/28/24 documented as of this encounter
--- OUTSIDE RECORDS SUMMARY | 2024-07-30 13:12 | XMS_ITS | Clinical Summary ---
Author Organization [facility] Address [address] [place] [address] Phone Care Team Providers Care Intelligence Manager Name Role Phone Lucy Yañez MD Primary Care Provi hetal Allergies Active Allergy Reactions Criticality Noted Date Comments Meperidine Hives,Rash Sulfa Antibiotics Hives,Rash Medications estradiol (ESTRACE) 0.5 MG Tablet Active calcium carbonate-vitam in D (CALCIUM 600 + D) 600-400 MG-UNIT TabletIndicatio ns:once a day Indications: once a day Active lisinopril (PRINIVIL, ZESTRIL) 10 MG TabletIndicatio ns:once a day Indications: once a day Active omeprazole (PRILOSEC) 40 MG CAPSULE DELAYED RELEASE TAKE ONE CAPSULE BY MOUTH ONCE DAILY 30 Cap 6 11/20/2015 Active Active Problems Problem Noted Date Diagnosed Date GERD (gastroesophageal reflux disease) Constipation Social History Tobacco Use Types Packs/Day Years Used Date Smoking Tobacco: Never Assessed Comments Unknown Sex and Gender Information Value Date Recorded Sex Assigned at Not on file Legal Sex Female 10:52 PM CDT Gender Identity Not on file Sexual Orientation Not on file Plan of Treatment Health Maintenance Due Date Last Done Comments DEXA Bone Density 1945 Hepatitis C Virus (HCV) Screening 1945 TdaP Immunization 1945 Pneumococcal Immunization (5 0+ years) (1 of 1 - PCV) 01/12/1996 Zoster Immunization (1 of 2) 01/12/1996 Respiratory Syncytial Virus (RSV) Immunization (Adult) (1 - 1-dose 75+ series) 2021 Influenza Immunization (#1) 2023 SARS-COV-2 Immunization ( - 2023- season) 2023 Hepatitis B Immunization Aged Out No longer eligible based on patient's age to complete this topic Meningococcal Immunization (ACWY) Aged Out No longer eligible based on patient's age to complete this topic Rotavirus Immunization Aged Out No lo nger eligible based on patient's age to complete this topic Insurance MEDICARE Care Teams Intelligence Manager Relationship Specialty Start Date End Date Lucy Yañez MD [address] [place] [address] PCP - General Family Medicine 10/03/18
[2024-07-30 13:41] LABS: Sodium Urine Random 132 meq/L
[2024-08-01 14:54] LABS: Osmolality, Urine 542 mOsm/kg (50-1200)
[2024-08-02 05:23] LABS: Cortisol Random 19.4 mcg/dL
== END 2024-07-30 12:47 | disposition home or self-care (01) ==
LOC: CHSLAB 12:47
PROVIDERS: PCP Family Medicine; Visit Provider Nurse Practitioner Family
DX: E87.1 Hypo-osmolality and hyponatremia (principal); R19.7 Diarrhea, unspecified
CPT/HCPCS: 36415; 82533; 83935; 84300

== ENCOUNTER 2024-08-01 12:49 | Outpatient (CLI) | payer MEDICARE, SELFPAY ==
--- OUTSIDE RECORDS SUMMARY | 2024-08-01 13:06 | XMS_ITS | Clinical Summary ---
Author Organization [facility] Address [address] [place] [address] Phone Care Team Providers Care Supervisory Geographer Name Role Phone Lucy Yañez MD Primary [...] complete this topic Insurance MEDICARE Care Teams Supervisory Geographer Relationship Specialty Start Date End Date Lucy Yañez MD [address] [place] [address] PCP - General Family Medicine 10/03/18
--- OUTSIDE RECORDS SUMMARY | 2024-08-01 13:06 | XMS_ITS | Data Portability ---
Author Organization [place] [facility], Main Office Address [address] [place] [address] Care Team Providers Care Hot Molder Name Role Phone CRISTOBAL VANN Primary Care Provider [phone] CRISTOBAL VANN Referring Provider Assessment Encounter Date Assessment Date Assessment LastModified [...] thumb CMC bilaterally. 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 Sensation intact to light touch [...] Procedures injection/a spiration joint/bursa (PROC) 2023 024 [email or web address] In-Office Order, Internal Use Only DO Not Attach Compendium DO Not Attach Compendium, Do Not Delete/merge, [id number] 4 14:38:01 injection/a spiration joint/bursa (PROC) 2023 024 [email or web address] 3 In-Office Order, Internal Use Only DO Not Attach Compendium DO Not Attach Compendium, Do Not Delete/merge, 4 16:02:51 injection/a spiration joint/bursa (PROC) 2023 024 [email or web address] 3 In-Office Order, Internal Use Only DO Not Attach Compendium DO Not Attach Compendium, Do Not Delete/merge, 4 14:42:41 Surgeries None recorded. Imaging XR, wrist, 3 or more view 2022 023 [email or web address] [facility] [place], [address], [place], [address], 3 10:12:28 Medication Orders bupivacaine HCl 0.5 % (5 mg/mL) injection solution 2023 024 Not available 4 11:54:30 Kenalog 10 mg/mL suspension for injection 2023 024 Not available 4 11:54:30 bupivacaine HCl 0.5 % (5 mg/mL) injection solution 2023 024 [email or web address] [id number], [address], [place], [id number], 4 16:52:17 Kenalog 10 mg/mL suspension for injection 2023 024 [email or web address] [facility] #[id number], [address], [place], [id number], 4 16:52:17 bupivacaine HCl 0.5 % (5 mg/mL) injection solution 2023 024 [email or web address] [facility] #83458, [address], [place], [id number], 4 15:42:17 Kenalog 10 mg/mL suspension for injection 2023 024 [email or web address] [facility] #45233, [address], [place], [id number], 4 08:56:18 Patient TargetsNo targets recorded. Patient InstructionsNo instructions recorded. Reason for Referral None Reported. Results Created Date Observation Date Name Description Value Unit Range Abnormal Flag Note LastModifiedBy Organization Detail LastModifiedTime 06/15/19 23 XR, wrist , 3 or more view No observ ation record ed. [email or web address] [facility] [place] [address], [place], [address], 02/02/2023 10:12:35 Result Notes None recorded. Problems Name Problem SNOMED Code Status Onset Date Resolution Date Notes Provider Name and Address Organization Details Recorded Time Bilateral wrist pain 0183509635489 9105 Active 2022 DONTE Dodson null, [facility] 3 15:16:39 Bilateral carpal tunnel syndrome 4132074127903 9101 Active 2022 Eddy Coates MD [address] [facility], [place], [address], [facility] 3 16:39:04 Osteoarthri tis of joint of bilateral hands 0031561522857 09 Active 2022 Eddy Coates MD [address] [facility], [facility] [address] [facility] [address], [place], [address], [facility] 3 16:39:09 Pain of right wrist 9866037319328 00 Active 2023 [facility] 4 15:44:42 Osteoarthro sis of the carpometaca rpal joint of the thumb 05958623 Active 2023 Davis Shook MD [address] [facility], [address] [address], [place], [address] , [facility] 4 18:06:48 Problem Notes None recorded. Procedures Surgical History Date Name Laterality Status Provider Name and Address Organization Details Recorded Time 4 Ortho - Cortisone Injection completed Davis Shook MD [address], [place], [address], [facility] 11/08/2023 18:05:48 4 Ortho - Cortisone Injection completed Davis Shook MD [address], [place], [address], [facility] 07/06/2023 14:55:11 4 Ortho - Cortisone Injection completed Jenny Thomas NP [address], [place] Formerly named [facility], [place], [address], [facility] 03/08/2023 14:32:09 esophageal hiatus hernia repair completed DONTE Dodson [facility] 06/14/2022 15:15:30 Back Surgeries completed DONTE Dodson [facility] 06/14/2022 15:15:38 Imaging Results None recorded. Procedure Notes None recorded. Medical Equipment None Reported. Allergies Allergen ID Allergen Name Allergen Category Reaction Reaction Severity Criticality Documentation Date Start Date Code Code System Note Provider Name and Address Organization Details Recorded Time 76020 Substance with sulfonami de structure and antibacte rial mechanism of action (substanc e) medicatio n Not available Not available Not available 06/14/2022 87180 8003 SNOMED DONTE Dodson, [facility] 3 15:13:06 Medications Name Sig Start [...] 1 mL by injection route. 2023 active [facility]: 0003- 0494- 20 Not Available Not Available [...] Updated DateTime 03/08/2023 157.48 cm 24.3 kg/m2 19437.79 g Chelsey Singh CNA [place] [facility] [employer] [facility] 03/08/2023 14:12:36 Date Recorded Body height Body mass index (BMI) Body weight Provider Name and Address Organization Details Last Updated DateTime 05/17/2023 157.48 cm 23.8 kg/m2 88147.01 missy Jones Kimberlee [facility] [employer] [facility] 05/17/2023 11:36:03 Date Recorded Body height Body mass index (BMI) Body weight Provider Name and Address Organization Details Last Updated DateTime 06/14/2022 157.48 cm 24.1 kg/m2 55373.19 missy [place] DONTE [facility] [employer] [facility] 06/14/2022 15:12:50 Date Recorded Body height Body mass index (BMI) Body weight Provider Name and Address Organization Details Last Updated DateTime 07/05/2023 157.48 cm 23.6 kg/m2 35079.42 missy Jones Karen [facility] [employer] [facility] 07/05/2023 15:41:45 Date Recorded Body height Body mass index (BMI) Body weight Provider Name and Address Organization Details Last Updated DateTime 11/08/2023 157.48 cm 23.8 kg/m2 62730.01 missy Mcmahonwade [facility] [employer] [facility] 11/08/2023 14:33:19 Social History Question Answer Notes LastModified by [email or web address] Details LastModified Time Tobacco Smoking Status Never Smoker Isha [place] DONTE [facility] [employer] [facility] 06/14/2022 15:15:12 What Was The Date Of Your Most Recent Tobacco Screening? 07/05/2023 [email or web address] Information not available 07/05/2023 Sex: Unknown Functional Status Question Answer Note LastModified by [email or web address] Details LastModified Time What is your level [...] SNOMED-CT Code Diagnosis ICD10 Code Diagnosis Note [id number] Eddy Coates MD [facility] [place] [address] [place] [address] 06/14/2022 14:46:40 06/14/2022 16:02:51 Bilateral wrist pain 9928312560 3372305 M25.531 M25.532 Osteoarthr itis of joint of bilateral hands 7956301244 30227 M19.041 patient can do anti-infla mmatory for the osteoarthr itis if no improvemen t over time we can inject the involved joints. If still no improvemen t last resort for the D IP joints would be arthrodesi s for the thumb CMC joint would be a tendon interposit ion arthroplas ty Bilateral carpal tunnel syndrome 8866503707 7245739 G56.03 we provided the patient with well fitted wrist braces. Can wear the braces at night. We will see her back in a few months for follow-up if no improvemen t will get an EMG nerve conduction test [id number] Davis Shook MD [facility] [place] [address] [place] [address] 03/08/2023 14:03:45 03/08/2023 14:32:48 Bilateral wrist pain 4135503375 5763609 M25.531 M25.632 [id number] Davis Shook MD [facility] [place] [address] [place] [address] 05/17/2023 11:26:57 05/17/2023 11:56:05 Bilateral wrist pain 1212743919 1470766 M25.531 M25.892 [id number] Davis Shook MD [facility] [place] [address] [place] [address] 07/05/2023 15:25:58 07/05/2023 16:01:31 Pain of right wrist 7383768043 32172 M25.218 [id number] Davis Shook MD [facility] [place] [address] [place] [address] 11/08/2023 14:29:28 11/08/2023 15:15:38 Pain of right wrist 6574654634 99523 M25.531 Bilateral carpal tunnel syndrome 5209607540 6402147 G56.03 Osteoarthr osis of the carpometacarpal joint of the thumb 34538268 M18.9 Health Concerns Section Related Observation LastModified by Organization Detai ls LastModified Time None Recorded Concern Status LastModified by Organization Details LastModified Time None Recorded Advance Directives Directive None Recorded Payers Insurance Date Sequence Insurance Name Policy Number Policy Lowery Covered Member ID Lowery Member ID Guarantor Name 11/08/2023 1 [facility] (MEDICARE REPLACEMENT/A DVANTAGE - PPO) [id number] Silvana Rhodes [id number] Silvana Rhodes Notes Date Note Type Note Provider Name and Address Organization Details Recorded Time 06/14/2022 text/html Patient comes in today for evaluation complains of pain both thumbs 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
--- OUTSIDE RECORDS SUMMARY | 2024-08-01 13:06 | XMS_ITS | Clinical Summary ---
Author Organization [facility] Address [address] [place] [address] Care Team Providers Care Automation Qa Tester Name Role Phone Jayda Chakraborty MD Primary Care Provider [phone] Source Comments [facility],non-owned Affiliates and Associated Physician Practices is amultiple site organization consisting of ambulatory clinics and hospital sitesin [place], [place] and [place]. This disclosure is being madepursuant to the Care Everywhere program and may not contain all information available regarding this patient. Last updated 17.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 CONTROL OPERATOR Oxygen Saturation 98% 05/01/2023 11:36 AM CDT [...] this topic Medical Devices Implanted Type Area Hvac Journeyman Device Identifier Shelf Expiration Date Model / Serial / Lot Screw Set Ti Spnl Brk Off Cd Hzn Nonster - Sn/A Implanted:Qty: 8 on 07/03/2020 by Sarthak Saucedo MD at [facility] N/A: Spine Lumbar Medtronic Sofamor [employer] 07/03/2030 [id number] / N/A / N/A Description:POSTERIOR Spcr 18 Deg 14x22 Implanted:Qty: 1 on 07/03/2020 by Sarthak Saucedo MD at [facility] N/A: Spine Lumbar Medtronic Sofamor [employer] 07/04/2026 [id number] / / [id number] Description:L3-L4 Vic Spnl 100mm 5.5mm Cd Hzn Crv Cocrmo - Sn/A Implanted:Qty: 2 on 07/03/2020 by Sarthak Saucedo MD at [facility] Med[employer]onic Inc 07/03/2030 [id number] / N/A / N/A Description:posterior Screw 6.5mm 40mm Ma Spne Solera Cd Hzn - Sn/A Implanted:Qty: 1 on 07/03/2020 by Sarthak Saucedo MD at [facility] N/A: Spine Lumbar Medtronic Sofamor [employer] 07/03/2030 [id number] / N/A / N/A Description:POSTERIOR Screw 6.5mm 45mm Ma Spne Solera Cd Hzn - Sn/A Implanted:Qty: 1 on 07/03/2020 by Sarthak Saucedo MD at [facility] N/A: Spine Lumbar Medtronic Sof[employer]or [employer] 07/03/2030 [id number] / N/A / N/A Description:POSTERIOR Screw 7.5mm 45mm Ma Spne Solera Cd Hzn - Sn/A Implanted:Qty: 3 on 07/03/2020 by Sarthak Saucedo MD at [facility] N/A: Spine Lumbar Medtronic [employer] 07/03/2030 [id number] / N/A / N/A Description:POSTERIOR Screw 7.5mm 40mm Ma Spne Solera Cd Hzn - Sn/A Implanted:Qty: 3 on 07/03/2020 by Sarthak Saucedo MD at [facility] N/A: Spine Lumbar Medtronic Sof[employer] 07/03/2030 [id number] / N/A / N/A Description:POSTERIOR Graft Bone Grftn Dbm Plif 10x2.5cm - [id number] Implanted:Qty: 1 on 07/03/2020 by Sarthak Saucedo MD at [facility] N/A: Spine Lumbar [employer] 04/02/2023 [id number] / [id number] / N/A Description:POSTERIOR Spcr Spnl [id number] Cpstn Cntrl 18d Peek - Sn/A Implanted:Qty: 2 on 07/03/2020 by Sarthak Saucedo MD at [facility] N/A: Spine Lumbar Medtronic Sofamor [employer] Spine 11/23/2024 [id number] / N/A / [id number] Description:POSTERIOR Spcr 12 Deg 11x22 - Sn/A Implanted:Qty: 2 on 07/03/2020 by Sarthak Saucedo MD at [facility] N/A: Spine Lumbar Medtronic Sof[employer]or [employer] 02/11/2028 [id number] / N/A / [id number] Description:POSTERIOR Spcr 18 Deg 14x22 Implanted:Qty: 1 on 07/03/2020 by Sarthak Saucedo MD at [facility] N/A: Spine Lumbar Medtronic [employer]or [employer] 03/18/2028 [id number] / / [id number] Description:L3-L4 Lamitrode Tripole Implanted:Qty: 1 on 03/09/2023 by Sarthak Saucedo MD at [facility] N/A: Spine Thoracic [employer] 11/28/2024 [id number] / [id number] / [id number] [facility] Eterna Scs 16chnl Ipg - [id number] Implanted:Qty: 1 on 03/09/2023 by Sarhtak Saucedo MD at [facility] Left: Back [employer] 02/22/2025 [id number] / [id number] / Description:Left Lower Back Insurance [facility] MANAGED MEDICARE ADV * Guarantor: SILVANA RHODES Account Type Relation to Patient Date of Phone Billing Address Personal/Family [address] [phone] SELF PAY NO INSURANCE Member Subscriber Plan / Payer (Ef fective for All Dates) Name:Silvana Rhodes Member ID:Not on file Relation to Subscriber:Not on file Name:SILVANA RHODES Subscriber ID:Not on file Address: [address] [place], [place] [id number] Payer ID:Not on file Group ID:Not on file Type:Self Pay Address: [facility] MANAGED MEDICARE ADV * Guarantor: SILVANA RHODES Account Type Relation to Patient Date of Phone Billing Address Personal/Family [address] [phone] SELF PAY NO INSURANCE Member Subscriber Plan / Payer (Ef fective for All Dates) Name:Silvana Rhodes Member ID:Not on file Relation to Subscriber:Not on file Name:SILVANA RHODES Subscriber ID:Not on file Address: [address] [place], [place] [id number] Payer ID:Not on file Group ID:Not on file Type:Self Pay Address: [facility] MANAGED MEDICARE ADV * Guarantor: SILVANA RHODES Account Type Relation to Patient Date of Phone Billing Address Personal/Family [address] [phone] SELF PAY NO INSURANCE Member Subscriber Plan / Payer (Ef fective for All Dates) Name:Silvana Rhodes Member ID:Not on file Relation to Subscriber:Not on file Name:SILVANA RHODES Subscriber ID:Not on file Address: [address] [place], [place] [phone] Payer ID:Not on file Group ID:Not on file Type:Self Pay Address: [facility] MANAGED MEDICARE ADV Advance Directives * Full Code (Latest Code Status on File) Date Activated Date Inactivated Comments 07/03/2020 2:31 PM 07/08/2020 2:23 PM Care Teams Automation Qa Tester Relationship Specialty Start Date End Date Jayda Chakraborty MD [address] [place] [address] PCP - General Family Medicine 08/30/21
--- OUTSIDE RECORDS SUMMARY | 2024-08-01 13:06 | XMS_ITS | Encounter Summary ---
Author Organization [facility] Address [address] [place] [place] [address] Care Team Providers Care Marine Superintendent Name Role Phone Maynor Jones Primary Care Provider Jayda Redd MD Primary Care Provider [phone] Encounter Details Date Type Department Care Team (Late st Contact Info) Description 07/02/2020 Telephone [facility] [address] [place] [address] Julieta Moon Social History Tobacco Use Types [...] with surgery instructions. Arrival time 0530am to [facility] 1st floor ACU. NPO after midnight. documented in this encounter Plan of Treatment Not on file documented as of this encounter Visit Diagnoses Not on filedocumented in this encounter Care Teams Marine Superintendent Relationship Specialty Start Date End Date Maynor Jones Update Information PCP - General 05/22/20 08/29/21 Jayda Chakraborty MD [address] [place] [address] PCP - General Family Medicine 08/30/21 documented as of this encounter
--- OUTSIDE RECORDS SUMMARY | 2024-08-01 13:06 | XMS_ITS | Clinical Summary ---
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
--- OUTSIDE RECORDS SUMMARY | 2024-08-01 13:06 | XMS_ITS | Referral Summary ---
Author Organization 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
[2024-08-01 14:38] LABS: Toxigenic C. Diff POSITIVE (NEGATIVE)
[2024-08-08 23:52] LABS: Calprotectin, Stool. 173 mcg/g
[2024-08-10 00:19] LABS: Pancreatic Elastase, Stool. 421 mcg/g (>200)
== END 2024-08-01 12:50 | disposition home or self-care (01) ==
LOC: CHSLAB 12:50
PROVIDERS: PCP Family Medicine; Visit Provider Nurse Practitioner Family
DX: R19.7 Diarrhea, unspecified (principal)
CPT/HCPCS: 82653; 83993; 87045; 87177; 87209; 87269; 87427; 87449; 87493

== ENCOUNTER 2024-09-10 13:20 | Outpatient (CLI) | payer MEDICARE, SELFPAY ==
--- NOTE | ~2024-09-10 | CT_ITS ---
EXAMINATION: CT brain wo/w con DATE: 09/10/2024 13:53 INDICATION: Amnesia TECHNIQUE: Computed tomography (CT) of the head was performed without and with 100 mL Omnipaque-350 i ntravenous contrast. Sagittal and coronal reconstructions were performed. The mA was adjusted accordi ng to patient size. Iterative reconstruction technique was employed. The dose-length product was 1199 .14 mGy-cm. COMPARISON: MR dated 09/02/2019 FINDINGS: No acute intracranial hemorrhage, acute infarction or abnormal extra axial fluid collection. Ventricl es are normal and symmetric. No mass/mass effect. No abnormally enhancing brain lesions. Cerebral art eries are unremarkable with no hemodynamically significant stenosis, thrombosis or aneurysm. Bilatera l A1 and P1 segments are patent as well as patent bilateral posterior communicating arteries. Changes of bilateral intraocular lens replacement. The orbits, paranasal sinuses and mastoid air cells are n ormal. IMPRESSION: 1. Normal brain. No acute intracranial process. Reviewed, dictated and finalized at location A.
[2024-09-11 10:55] LABS: Estimated Glomerular Filt Rate > 60
== END 2024-09-10 13:21 | disposition home or self-care (01) ==
LOC: MICIMG 13:20
PROVIDERS: PCP Family Medicine; Visit Provider Family Medicine
DX: R41.3 Other amnesia (principal)
CPT/HCPCS: 70470; Q9967

== ENCOUNTER 2024-12-09 14:51 | Outpatient (CLI) | payer MEDICARE, SELFPAY ==
--- OUTSIDE RECORDS SUMMARY | 2024-12-09 16:31 | XMS_ITS | Clinical Summary ---
Author Organization [facility] Address [address] [place] [address] Phone Care Team Providers Care Materials Analyst Name Role Phone Lucy Yañez MD Primary [...] Due Date Last Done Comments Hepatitis C Virus (HCV) Screening 1945 TdaP Immunization 1945 Pneumococcal Immunization (5 0+ years) (1 of 1 - PCV) 01/12/1996 Zoster Immunization (1 of 2) 01/12/1996 Medicare Initial AWV [id number] 12/15/2011 Respiratory Syncytial Virus (RSV) Immunization (Adult) (1 - 1-dose 75+ series) 2021 Influenza Immunization (#1) 2024 SARS-COV-2 Immunization ( - 2023- season) 2024 Hepatitis B Immunization Aged Out No longer eligible based on patient's age to complete this topic Human Papillomavirus (HPV) Immunization Aged Out No longer eligible b ased on patient's age to complete this topic Meningococcal Immunization (ACWY) Aged Out No longer eligible based on patient's age to complete this topic Rotavirus Immunization Aged Out No lo nger eligible based on patient's age to complete this topic Insurance MEDICARE Care Teams Materials Analyst Relationship Specialty Start Date End Date Lucy Yañez MD [address] [place] [address] PCP - General Family Medicine 10/03/18
--- OUTSIDE RECORDS SUMMARY | 2024-12-09 16:31 | XMS_ITS | Clinical Summary ---
Author Organization [facility] Address [address] [place] [address] Care Team Providers Care Call Center Representative Name Role Phone Jayda Chakraborty MD Primary Care Provider [phone] [facility],non-owned Affiliates and Associated Physician Practices is amultiple site organization consisting of ambulatory clinics and hospital sitesin [place], [place], [place] and [place]. This disclosure is being madepursuant to the Care Everywhere program and may not contain all information available regarding this patient. Last updated 17.[facility] [employer] Allergies Active Allergy Reactions Criticality Noted Date [...] Active vitamin D, ergocalciferol, (DRISDOL) 1.25 MG (11939 UT) capsule TAKE 1 CAPSULE BY MOUTH [...] mouth once daily 3 Active HYDROcodone-geetha taminophen ([place]urn) 5-325 MG tablet Take 1 (one) tablet by mouth every 4 hours as needed pain 3 Active nortriptyline (Pamelor) 10 MG capsule TAKE 1 CAPSULE BY MOUTH EVERY DAY AT BEDTIME 3 Active HYDROcodone-geetha taminophen ([place]) 5-325 MG tabletIndicatio ns:S/P insertion of spinal [...] CDT Respiratory Rate 18 03/22/2023 11:29 AM ART PSYCHOTHERAPIST OR THERAPIST Oxygen Saturation 98% 05/01/2023 11:36 AM CDT [...] yrs (1 - 1-dose 75+ series) 2021 DEPRESSION SCREENING 02/14/2024 MEDICARE AWV CALENDAR YEAR 2024 COVID-19 VACCINE (3 - 2024-2 6 season) 2024 05/20/2020, 04/21/2020 INFLUENZA VACCINE (#1) 2024 HEPATITIS B VACCINE Aged Out No [...] this topic Medical Devices Implanted Type Area Care Manager Device Identifier Shelf Expiration Date Model / Serial / Lot Screw Set Ti Spnl Brk Off Cd Hzn Nonster - Sn/A Implanted:Qty: 8 on 07/03/2020 by Sarthak Saucedo MD at [facility] N/A: Spine Lumbar Medtronic Sofamor [employer] 07/03/2030 [id number] / N/A / N/A Description:POSTERIOR Spcr 18 Deg 14x22 Implanted:Qty: 1 on 07/03/2020 by Sarthak Saucedo MD at [facility] N/A: Spine Lumbar Medtronic Sofamor [employer] 07/04/2026 [id number] / / [id number] Description:L3-L4 Vic Spnl 100mm 5.5mm Cd Hzn Crv [place]rmo - Sn/A Implanted:Qty: 2 on 07/03/2020 by Sarthak Saucedo MD at [facility] Medtronic Inc 07/03/2030 [id number] / N/A / N/A Description:posterior Screw 6.5mm 40mm Ma Spne Solera Cd Hzn - Sn/A Implanted:Qty: 1 on 07/03/2020 by Sarthak Saucedo MD at [facility] N/A: Spine Lumbar Medtronic Sofamor [employer] 07/03/2030 [id number] / N/A / N/A Description:POSTERIOR Screw 6.5mm 45mm Ma Spne Solera Cd Hzn - Sn/A Implanted:Qty: 1 on 07/03/2020 by Sarthak Saucedo MD at [facility] N/A: Spine Lumbar Medtronic Sofamor [employer] 07/03/2030 [id number] / N/A / N/A Description:POSTERIOR Screw 7.5mm 45mm Ma Spne Solera Cd Hzn - Sn/A Implanted:Qty: 3 on 07/03/2020 by Sarthak Saucedo MD at [facility] N/A: Spine Lumbar Medtronic Sofamor [employer] 07/03/2030 [id number] / N/A / N/A Description:POSTERIOR Screw 7.5mm 40mm Ma Spne Solera Cd Hzn - Sn/A Implanted:Qty: 3 on 07/03/2020 by Sarthak Saucedo MD at [facility] N/A: Spine Lumbar Medtronic Sofamor [employer] 07/03/2030 [id number] / N/A / N/A Description:POSTERIOR Graft Bone Grftn Dbm Plif 10x2.5cm - [id number] Implanted:Qty: 1 on 07/03/2020 by Sarthak Saucedo MD at [facility] N/A: Spine Lumbar [employer] Inc 04/02/2023 [id number] / [id number] / N/A Description:POSTERIOR Spcr Spnl [id number] Cpstn Cntrl 18d Peek - Sn/A Implanted:Qty: 2 on 07/03/2020 by Sarthak Saucedo MD at [facility] N/A: Spine Lumbar Medtronic Sofamor Danek Spine 11/23/2024 [id number] / N/A / [id number] Description:POSTERIOR Spcr 12 Deg 11x22 - Sn/A Implanted:Qty: 2 on 07/03/2020 by Sarthak Saucedo MD at [facility] N/A: Spine Lumbar Medtronic Sofamor [employer] 02/11/2028 [id number] / N/A / [id number] Description:POSTERIOR Spcr 18 Deg 14x22 Implanted:Qty: 1 on 07/03/2020 by Sarthak Saucedo MD at [facility] N/A: Spine Lumbar Medtronic Sofamor [employer]anek Inc 03/18/2028 [id number] / / [id number] Description:L3-L4 Lamitrode Tripole Implanted:Qty: 1 on 03/09/2023 by Sarthak Saucedo MD at [facility] N/A: Spine Thoracic [employer] 11/28/2024 [id number] / [id number] / [id number] [facility] Eterna Scs 16chnl Ipg - [id number] Implanted:Qty: 1 on 03/09/2023 by Sarthak Saucedo MD at [facility] Left: Back [employer] 02/22/2025 [id number] / [id number] / Description:Left Lower Back Insurance [address] [id number] [facility] MANAGED MEDICARE ADV [facility] MANAGED MEDICARE ADV * Guarantor: SILVANA RHODES Account Type Relation to Patient Date of Phone Billing Address Personal/Family [address] [phone] SELF PAY NO INSURANCE Member Subscriber Plan / Payer (Ef fective for All Dates) Name:Silvana Rhodes Member ID:Not on file Relation to Subscriber:Not on file Name:SILVANA RHODES Subscriber ID:Not on file Address: [address] [place], [place] [address] Payer ID:Not on file Group ID:Not on file Type:Self Pay Address: [facility] MANAGED MEDICARE ADV * Guarantor: SILVANA RHODES Account Type Relation to Patient Date of Phone Billing Address Personal/Family [address] [phone] SELF PAY NO INSURANCE Member Subscriber Plan / Payer (Ef fective for All Dates) Name:Silvana Rhodes Member ID:Not on file Relation to Subscriber:Not on file Name:SILVANA RHODES Subscriber ID:Not on file Address: [address] [place], [place] [address] Payer ID:Not on file Group ID:Not on file Type:Self Pay Address: [facility] MANAGED MEDICARE ADV * Guarantor: SILVANA RHODES Account Type Relation to Patient Date of Phone Billing Address Personal/Family [address] [phone] SELF PAY NO INSURANCE Member Subscriber Plan / Payer (Ef fective for All Dates) Name:Silvana Rhodes Member ID:Not on file Relation to Subscriber:Not on file Name:SILVANA RHODES Subscriber ID:Not on file Address: [address] [place], [place] [id number] Payer ID:Not on file Group ID:Not on file Type:Self Pay Address: [facility] MANAGED MEDICARE ADV Advance Directives * Full Code (Latest Code Status on File) Date Activated Date Inactivated Comments 07/03/2020 2:31 PM 07/08/2020 2:23 PM Care Teams Call Center Representative Relationship Specialty Start Date End Date Jayda Chakraborty MD [address] [place] [address] PCP - General Family Medicine 08/30/21
--- OUTSIDE RECORDS SUMMARY | 2024-12-09 16:31 | XMS_ITS | Clinical Summary ---
Author Organization [facility] Address [address] [place] [address] Care Team Providers Care Computational Sciences Professor Name Role Phone Jayda Chakraborty MD Primary Care Provider [phone] Allergies Active Allergy Reactions Criticality Noted Date [...] Sex Assigned at Female 02/28/2024 12:09 PM ROLL BUILDER Legal Sex Female 5:54 PM ROLL BUILDER Gender Identity Not on file Sexual Orientation Not on file Last Filed Vital Signs Vital Sign Reading Time Taken Comments Blood Pressure 160/78 04/03/2024 10:17 AM ROLL BUILDER Pulse 69 04/03/2024 10:17 AM ROLL BUILDER Temperature 35.7 C (96.2 F) 04/03/2024 10:17 AM ROLL BUILDER Respiratory Rate 16 04/03/2024 10:17 AM ROLL BUILDER Oxygen Saturation 95% 04/03/2024 10:17 AM ROLL BUILDER Inhaled Oxygen Concentration - - Weight 54.4 kg (120 lb) 04/03/2024 9:09 AM ROLL BUILDER Height 157.5 cm (5' 2) 04/03/2024 9:09 AM ROLL BUILDER Body Mass Index 21.95 04/03/2024 9:09 AM ROLL BUILDER Plan of Treatment Health Maintenance Due Date [...] 2024 11/16/2023, 02/08/2023, 11/09/2021, Additional history exists Influenza Adult (#1) 2024 11/16/2023, 11/29/2022, 10/30/2020, Additional history exists DTaP, Tdap and Td Vaccines (3 - Td or Tdap) 10/08/2029 10/09/2019, 08/22/2009, 10/07/2004 Hepatitis A Vaccines Aged Out No long er eligible based on patient's age to complete this topic Meningococcal B Vaccine Aged Out No l onger eligible based on patient's age to complete this topic Meningococcal Vaccine Aged Out No yady logan eligible based on patient's age to complete this topic RSV Immunizations Under 20 Months Aged Out No longer eligible based on patient's age to complete this topic Medical Devices Implanted Type Area Pin Setter Device Identifier Shelf Expiration Date Model / Serial / Lot Iol Tecnis Simplicity Dcb00 - [id number] Implanted:Qty: 1 on 02/28/2024 by Mona James MD at [facility] Lens Left: Eye [employer] [id number] 04/04/2026 DCB00 / [id number] / [id number] Technis Simplicity Iol Implanted:Qty: 1 on 04/03/2024 by Mona James MD at [facility] Right: Eye [id number] 12/12/2026 / [id number] / [id number] Insurance MEDICARE Care Teams Computational Sciences Professor Relationship Specialty Start Date End Date Jayda Chakraborty MD [address] [place] [address] PCP - General FAMILY PRACTICE 02/28/24
--- OUTSIDE RECORDS SUMMARY | 2024-12-09 16:31 | XMS_ITS | Encounter Summary ---
Author Organization [facility] Address [address] [place] [address] Care Team Providers Care District Plant Supervisor Name Role Phone Jayda Chakraborty MD Primary Care Provider [phone] Encounter Details Date Type Department Care Team (Late st Contact Info) Description 07/21/2018 Abstract SFL CONVERSION [address] [place] [address] , Generic ConversionMD Social History Tobacco Use Types Packs/Day Years Used Date Smoking Tobacco: Never Assessed Comments Unknown Sex and Gender Information Value Date Recorded Sex Assigned at Female 02/28/2024 12:09 PM AUTOTRANSFUSIONIST Legal Sex Female 5:54 PM AUTOTRANSFUSIONIST Gender Identity Not on file Sexual Orientation Not on file documented as of this encounter Plan of Treatment Not on file documented as of this encounter Visit Diagnoses Not on filedocumented in this encounter Care Teams District Plant Supervisor Relationship Specialty Start Date End Date Jayda Chakraborty MD [address] [place] [address] PCP - General FAMILY PRACTICE 02/28/24 documented as of this encounter
--- OUTSIDE RECORDS SUMMARY | 2024-12-09 16:31 | XMS_ITS | Data Portability ---
Author Organization [facility] Main Office Address [address] [place] [address] Care Team Providers Care Structures Assembler Name Role Phone CRISTOBAL VANN Primary Care Provider CRISTOBAL VANN Referring Provider [phone] Assessment Encounter Date Assessment Date Assessment LastModified [...] thumb CMC bilaterally. Pain and weakness with graphics editor and pinch. Sensation intact to light touch [...] Procedures injection/a spiration joint/bursa (PROC) 2023 024 [email or web address] In-Office Order, Internal Use Only DO Not Attach Compendium DO Not Attach Compendium, Do Not Delete/merge, [id number] 4 14:38:01 injection/a spiration joint/bursa (PROC) 2023 024 [email or web address] 3 In-Office Order, Internal Use Only DO Not Attach Compendium DO Not Attach Compendium, Do Not Delete/merge, 4 16:02:51 injection/a spiration joint/bursa (PROC) 2023 024 [email or web address] 3 In-Office Order, Internal Use Only DO Not Attach Compendium DO Not Attach Compendium, Do Not Delete/merge, [id number] 4 14:42:41 Surgeries None recorded. Imaging XR, wrist, 3 or more view 2022 023 [email or web address] [facility] [place], [address], [place], [address], 3 10:12:28 Medication Orders bupivacaine HCl 0.5 % (5 mg/mL) injection solution 2023 024 Not available 4 11:54:30 Kenalog 10 mg/mL suspension for injection 2023 024 Not available 4 11:54:30 bupivacaine HCl 0.5 % (5 mg/mL) injection solution 2023 024 [email or web address] [id number], [address] [place], [place], [id number], 4 16:52:17 Kenalog 10 mg/mL suspension for injection 2023 024 [email or web address] [facility] #55980, [address], [place], [id number], 4 16:52:17 bupivacaine HCl 0.5 % (5 mg/mL) injection solution 2023 024 [email or web address] [facility] #68296, [address], [place], [id number], 4 15:42:17 Kenalog 10 mg/mL suspension for injection 2023 024 [email or web address] [facility] #76906, [address], [place], [id number], 4 08:56:18 Patient TargetsNo targets recorded. Patient InstructionsNo instructions recorded. Reason for Referral None Reported. Results Created Date Observation Date Name Description Value Unit Range Abnormal Flag Note LastModifiedBy Organization Detail LastModifiedTime 06/15/19 23 XR, wrist , 3 or more view No observ ation record ed. [email or web address] [facility] [address], [place], [address], 02/02/2023 10:12:35 Result Notes None recorded. Problems Name Problem SNOMED Code Status Onset Date Resolution Date Notes Provider Name and Address Organization Details Recorded Time Bilateral wrist pain 0337774162480 9105 Active 2022 DONTE Dodson null, [employer] 3 15:16:39 Bilateral carpal tunnel syndrome 0009446485641 9101 Active 2022 Eddy Coates MD [address], [place], [address], [employer] 3 16:39:04 Osteoarthri tis of joint of bilateral hands 5655479917930 09 Active 2022 Eddy Coates MD [address], [facility] [facility], [place], [address], [employer] 3 16:39:09 Pain of right wrist 5626395582524 00 Active 2023 DONTE Mai, [facility] [employer] [facility] 4 15:44:42 Osteoarthro sis of the carpometaca rpal joint of the thumb 17794030 Active 2023 Dvais Shook MD [address] [facility] [facility], [address] [address], [place], [address], [facility] [employer] [facility] 4 18:06:48 Problem Notes None recorded. Procedures Surgical History Date Name Laterality Status Provider Name and Address Organization Details Recorded Time 4 Ortho - Cortisone Injection completed Davis Shook MD [address] [facility] [employer], [employer], [place], [address], [facility] [employer] [facility] 11/08/2023 18:05:48 4 Ortho - Cortisone Injection completed Davis Shook MD [address] [facility] [employer], [address] [address], [place], [address], [facility] [employer] [facility] 07/06/2023 14:55:11 4 Ortho - Cortisone Injection completed Jenny Thomas NP [address] [facility] [employer], [address] [address], [place], [address], [facility] [employer] [facility] 03/08/2023 14:32:09 esophageal hiatus hernia repair completed DONTE Dodson [facility] [employer] [facility] 06/14/2022 15:15:30 Back Surgeries completed DONTE Dodson [facility] [employer] [facility] 06/14/2022 15:15:38 Imaging Results None recorded. Procedure Notes None recorded. Medical Equipment None Reported. Allergies Allergen ID Allergen Name Allergen Category Reaction Reaction Severity Criticality Documentation Date Start Date Code Code System Note Provider Name and Address Organization Details Recorded Time 80501 Substance with sulfonami de structure and antibacte rial mechanism of action (substanc e) medicatio n Not available Not available Not available 06/14/2022 06688 8003 SNOMED DONTE Dodson, [facility] [employer] [facility] 3 15:13:06 Medications Name Sig Start [...] 1 mL by injection route. 2023 active ND: 0003- 0494- 20 Not Available Not Available [...] Updated DateTime 03/08/2023 157.48 cm 24.3 kg/m2 83676.79 g RUDY Matt Peng [place] [employer] [facility] 03/08/2023 14:12:36 Date Recorded Body height Body mass index (BMI) Body weight Pain severity - 0-10 verbal numeric rating [Score] - Reported Provider Name and Address Organization Details Last Updated DateTime 05/17/2023 157.48 cm 23.8 kg/m2 67930.01 g 8 Karen Mcmahonwade [facility] 05/17/2023 11:36:13 Date Recorded Body height Body mass index (BMI) Body weight Provider Name and Address Organization Details Last Updated DateTime 06/14/2022 157.48 cm 24.1 kg/m2 82783.19 g Kashmirperlacamille Pebbles [facility] 06/14/2022 15:12:50 Date Recorded Body height Body mass index (BMI) Body weight Provider Name and Address Organization Details Last Updated DateTime 07/05/2023 157.48 cm 23.6 kg/m2 81983.42 g Karen Karen [facility] 07/05/2023 15:41:45 Date Recorded Body height Body mass index (BMI) Body weight Pain severity - 0-10 verbal numeric rating [Score] - Reported Provider Name and Address Organization Details Last Updated DateTime 11/08/2023 157.48 cm 23.8 kg/m2 65348.01 g 7 Karen Karen [facility] 11/08/2023 14:33:27 Social History Question Answer Notes LastModified by Organizat ion Details LastModified Time Tobacco Smoking Status Never Smoker Isha Rogel [facility]AKimberlee [facility] 06/14/2022 15:15:12 What Was The Date Of Your Most Recent Tobacco Screening? 07/05/2023 [email or web address] Information not available 07/05/2023 Sex: Unknown Functional Status Question Answer Note LastModified by Organizat ion Details LastModified Time What is your level [...] Diagnosis SNOMED-CT Code Diagnosis ICD10 Code Diagnosis IMO Codes Diagnosis Note [id number] Eddy Coates MD [facility] [address] [place] [address] 06/14/2022 14:46:40 06/14/2022 16:02:51 Bilateral wrist pain 7045704823 7666438 M25.531 M25.532 Osteoarthr itis of joint of bilateral hands 9455477993 36927 M19.041 patient can do anti-infla mmatory for the osteoarthr itis if no improvemen t over time we can inject the involved joints. If still no improvemen t last resort for the D IP joints would be arthrodesi s for the thumb CMC joint would be a tendon interposit ion arthroplas ty Bilateral carpal tunnel syndrome 6234333344 1283737 G56.03 we provided the patient with well fitted wrist braces. Can wear the braces at night. We will see her back in a few months for follow-up if no improvemen t will get an EMG nerve conduction test [id number] Davis Shook MD [facility] [place] [address] [place] [address] 03/08/2023 14:03:45 03/08/2023 14:32:48 Bilateral wrist pain 5857667026 5490984 M25.531 M25.871 [id number] Davis Shook MD [facility] [place] [address] [place] [address] 05/17/2023 11:26:57 05/17/2023 11:56:05 Bilateral wrist pain 6723571378 6949539 M25.531 M25.410 [id number] Davis Shook MD [facility] [place] [address] [place] [address] 07/05/2023 15:25:58 07/05/2023 16:01:31 Pain of right wrist 3588105237 34081 M25.077 [id number] Davis Shook MD [facility] [address] [place] [address] 11/08/2023 14:29:28 11/08/2023 15:15:38 Pain of right wrist 6113115303 74951 M25.531 Bilateral carpal tunnel syndrome 0644141531 9355234 G56.03 Osteoarthr osis of the carpometacarpal joint of the thumb 81686869 M18.9 Health Concerns Section Related Observation LastModified by Organization Detai ls LastModified Time None Recorded Concern Status LastModified by Organization Details LastModified Time None Recorded Advance Directives Directive None Recorded Payers Insurance Date Sequence Insurance Name Policy Number Policy Lowery Covered Member ID Lowery Member ID Guarantor Name 11/08/2023 1 [facility] (MEDICARE REPLACEMENT/A DVANTAGE - PPO) [id number] Silvana Rhodes [id number] Silvana Rhodes Notes Date Note Type Note Provider Name and Address Organization Details Recorded Time 06/14/2022 text/html Patient comes in today for evaluation complains of pain both thumbs problems with graphics editor and pinch nothing really has helped so far been going on for several months now exacerbated by activities of daily living Eddy Coates MD [address] [facility], [address] [address], [place], [address], [facility] [employer] 06/14/2022 16:39:57 OBGyn Episode No OBEpisode recorded.
--- OUTSIDE RECORDS SUMMARY | 2024-12-09 16:31 | XMS_ITS | Clinical Summary ---
Author Organization [facility] Address [address] [place] [address] Care Team Providers Care Economic Historian Name Role Phone Jayda Chakraborty MD Primary Care Provider [phone] Allergies Active Allergy Reactions Criticality Noted Date [...] on file Legal Sex Female 7:50 AM GEOMETRICIAN Gender Identity Not on file Sexual Orientation [...] 11/16/2023, 02/08/2023, 11/09/2021, Additional history exists Influenza Vaccine (#1) 2024 , 11/29/2022, 11/02/2021, Additional history exists DTaP/Tdap/Td Vaccine (3 - Td or Tdap) 10/08/2029 10/09/2019, 08/22/2009, 10/07/2004 Insurance [id number] ADVANTAGE [facility] MEDICARE Address: [address] [address] UHC MEDICARE ADVANTAGE [facility]ICAL [facility] MEDICARE Address: [address] [id number] [place] [phone] Care Teams Economic Historian Relationship Specialty Start Date End Date Jayda Chakraborty MD PCP - General Family Medicine 03/20/24
--- OUTSIDE RECORDS SUMMARY | 2024-12-09 16:31 | XMS_ITS | Encounter Summary ---
Author Organization [facility] Address [address] [place] [address] Care Team Providers Care Chisel Mortiser Operator Name Role Phone Maynor Jones Primary Care Provider Jayda Redd MD Primary Care Provider [phone] Encounter Details Date Type Department Care Team (Late st Contact Info) Description 07/02/2020 Telephone [facility] [address] [place] [address] Julieta Moon Social History Tobacco Use Types [...] PM CDT documented as of this encounter Functional Status * Functional and Cognitive Status Question Answer Date of Assessment Author Is person deaf or have nickolas us hearing difficulty? No 07/05/2020 9:55 PM CDT Cory Smith RN Is person blind or have seri ous difficulty seeing? No 07/05/2020 9:55 PM CDT Cory Smith RN Does person have serious dif ficulty walking/climbing stairs? No 07/05/2020 9:55 PM CDT Archana Smith RN Does person have difficulty dressing/bathing? No 07/05/2020 9:55 PM CDT Cory Smith RN Does person have difficulty doing errands alone? No 07/05/2020 9:55 PM CDT Cory Smith RN Does person have difficulty concentrating/remembering/making decisions? No 07/05/2020 9:55 PM CDT Cory Smith RN documented as of this encounter Miscellaneous Notes * Telephone Encounter - Julieta Moon - 07/02/2020 4:03 PM CDT Left voice message with surgery instructions. Arrival time 0530am to [facility] 1st floor ACU. NPO after midnight. documented in this encounter Plan of Treatment Not on file documented as of this encounter Visit Diagnoses Not on filedocumented in this encounter Care Teams Chisel Mortiser Operator Relationship Specialty Start Date End Date Maynor Jones Update Information PCP - General 05/22/20 08/29/21 Jayda Chakraborty MD [address] [place] [address] PCP - General Family Medicine 08/30/21 documented as of this encounter
[2024-12-09 17:03] LABS: Vitamin B12 565.0 pg/mL (239-931)
[2024-12-20 03:07] LABS: A -- Beta-amyloid 42/40 Ratio 0.104 (>0.102); Beta-amyloid 40 193.68 pg/mL (.); Beta-amyloid 42 20.06 pg/mL (.); N -- NfL, Plasma 3.21 pg/mL (0.00-6.04); T -- p-tau181 1.23 pg/mL (0.00-0.97)
== END 2024-12-09 14:52 | disposition home or self-care (01) ==
LOC: CHSLAB 14:52
PROVIDERS: PCP Family Medicine; Visit Provider Psychiatry & Neurology Neurology
DX: F32.9 Major depressive disorder, single episode, unspecified (principal); F41.9 Anxiety disorder, unspecified; R41.3 Other amnesia; E55.9 Vitamin D deficiency, unspecified
CPT/HCPCS: 36415; 82306; 82607; 82746; 83090; 83520

== ENCOUNTER 2025-02-11 11:13 | Outpatient (CLI) | payer MEDICARE, SELFPAY ==
[2025-02-11 11:36] LABS: Hematocrit 39.4 % (35.0-42.0); Hemoglobin 12.7 g/dL (11.7-13.8); Immature Granulocyte Percent A 0.3 % (0.0-0.0); Lymphocytes Absolute Auto 1.69 K/mm3 (1.10-4.50); Mean Corpuscular HGB Conc 32.2 g/dL (32-36); Mean Corpuscular Hemoglobin 30.2 pg (27.0-31.0); Mean Corpuscular Volume 93.8 fL (78.0-102.0); Nucleated Red Blood Cells Absolute Auto 0.00 K/mm3 (0.00-0.00); Nucleated Red Blood Cells Perc 0.0 % (0-0.0); Platelet Count Result 336 K/mm3 (150-420); Red Blood Count 4.20 M/mm3 (4.20-5.40); White Blood Count 6.0 K/mm3 (4.8-10.8)
[2025-02-11 11:55] LABS: Alanine Aminotransferase 16 U/L (6-35); Albumin Level 4.3 g/dL (3.5-5.1); Alkaline Phosphatase 88 U/L (38-126); Anion Gap 8 mmol/L (4-12); Aspartate Amino Transferase 25 U/L (14-36); Bilirubin,Total 0.4 mg/dL (0.2-1.3); Blood Urea Nitrogen 9 mg/dL (7-17); Calcium 10.3 mg/dL (8.4-10.2); Carbon Dioxide 28 mmol/L (22-30); Chloride 106 mmol/L (98-107); Cholesterol 181 mg/dL (0-200); Estimated Glomerular Filt Rate > 60; Glucose 115 mg/dL (65-110); HDL Direct 75 mg/dL; Osmolality Calculated 293 mOsm/kg (285-295); Potassium 4.8 mmol/L (3.4-5.0); Sodium 142 mmol/L (137-145); Total Protein 6.4 g/dL (6.3-8.2); Triglycerides 101 mg/dL (<150)
--- OUTSIDE RECORDS SUMMARY | 2025-02-11 11:59 | XMS_ITS | Clinical Summary ---
Author Organization [facility] Address [address] [place] [address] Phone Care Team Providers Care Car Shagger Name Role Phone Lucy Yañez MD Primary [...] complete this topic Insurance MEDICARE Care Teams Car Shagger Relationship Specialty Start Date End Date Lucy Yañez MD [address] [place] [address] PCP - General Family Medicine 10/03/18
--- OUTSIDE RECORDS SUMMARY | 2025-02-11 11:59 | XMS_ITS | Clinical Summary ---
Author Organization [facility] Address [address] [place] [address] Care Team Providers Care Sample Tailor Name Role Phone Jayda Chakraborty MD Primary Care Provider [phone] Allergies Active Allergy Reactions Criticality Noted Date [...] Sex Assigned at Female 02/28/2024 12:09 PM FILTER CHANGING TECHNICIAN Legal Sex Female 5:54 PM FILTER CHANGING TECHNICIAN Gender Identity Not on file Sexual Orientation Not on file Last Filed Vital Signs Vital Sign Reading Time Taken Comments Blood Pressure 160/78 04/03/2024 10:17 AM FILTER CHANGING TECHNICIAN Pulse 69 04/03/2024 10:17 AM FILTER CHANGING TECHNICIAN Temperature 35.7 C (96.2 F) 04/03/2024 10:17 AM FILTER CHANGING TECHNICIAN Respiratory Rate 16 04/03/2024 10:17 AM FILTER CHANGING TECHNICIAN Oxygen Saturation 95% 04/03/2024 10:17 AM FILTER CHANGING TECHNICIAN Inhaled Oxygen Concentration - - Weight 54.4 kg (120 lb) 04/03/2024 9:09 AM FILTER CHANGING TECHNICIAN Height 157.5 cm (5' 2) 04/03/2024 9:09 AM FILTER CHANGING TECHNICIAN Body Mass Index 21.95 04/03/2024 9:09 AM FILTER CHANGING TECHNICIAN Plan of Treatment Health Maintenance Due Date [...] this topic Medical Devices Implanted Type Area Quad Stayer Device Identifier Shelf Expiration Date Model / Serial / Lot Iol Tecnis Simplicity Dcb00 - [id number] Implanted:Qty: 1 on 02/28/2024 by Mona James MD at [facility] Lens Left: Eye [employer] [id number] 04/04/2026 DCB00 / [id number] / [id number] [employer] Simplicity Iol Implanted:Qty: 1 on 04/03/2024 by Mona James MD at [facility] Right: Eye [id number] 12/12/2026 / [id number] / [id number] Insurance MEDICARE Care Teams Sample Tailor Relationship Specialty Start Date End Date Jayda Chakraborty MD [address] [place] [address] PCP - General FAMILY PRACTICE 02/28/24
--- OUTSIDE RECORDS SUMMARY | 2025-02-11 11:59 | XMS_ITS | Clinical Summary ---
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 Gender Identity Not on file Sexual Orientation [...] or PCV21) 11/05/2020 11/06/2015, 02/14/2008 Covid-19 Vaccine (2024-2 6 season) 2024 11/16/2023, 02/08/2023, 11/09/2021, Additional history exists Influenza Vaccine (#1) 2024 , 11/29/2022, 11/02/2021, Additional history exists DTaP/Tdap/Td Vaccine (3 - Td or Tdap) 10/08/2029 10/09/2019, 08/22/2009, 10/07/2004 Insurance [id number] MEDIC[facility] ADVANTAGE UHC MEDICARE ADVANTAGE Member Subscriber Plan / Payer (Ef fective 2024-Present) Name:Silvana Rhodes Relation to Subscriber:Self Name:Silvana Rhodes Payer ID:[id number] (NAIC) Type:[facility] MED[facility] Address: [place] [phone] Care Teams Drug Safety Coordinator Relationship Specialty Start Date End Date Jayda Chakraborty MD PCP - General Family Medicine 03/20/24
--- OUTSIDE RECORDS SUMMARY | 2025-02-11 11:59 | XMS_ITS | Encounter Summary ---
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
== END 2025-02-11 11:14 | disposition home or self-care (01) ==
LOC: CHSLAB 11:14
PROVIDERS: PCP Family Medicine; Visit Provider Family Medicine
DX: R79.89 Other specified abnormal findings of blood chemistry (principal); I10 Essential (primary) hypertension; E55.9 Vitamin D deficiency, unspecified
CPT/HCPCS: 36415; 80053; 80061; 82306; 85025